=== PATIENT | female | born 1990 | race African-American/Black ===

== ENCOUNTER 2017-02-11 16:30 | Emergency (ER) | payer MEDICAID ==
[2016-03-15 15:20] VITALS: BMI 19.3
[~2017-02-11 16:30] MED LIST: BENADRYL25 MG PO; CARAFATE1 G/10 ML PO; LEVSIN/ANASP0.125 MG PO; NOVOLOG100 U/M1 SC; PEPCID20 MG PO; PRENATABS RX TA1 TAB PO; REGLAN SOL10 MG/10 M PO
[2017-02-11 17:58] LABS: HCG URINE NEGATIVE (NEGATIVE)
[2017-02-11 18:01] LABS: APPEARANCE HAZY (CLEAR); BILIRUBIN NEGATIVE (NEGATIVE); COLOR YELLOW (YELLOW); GLUCOSE NEGATIVE (NEGATIVE); KETONE MODERATE mg/dL (NEGATIVE); LEUKOCYTE ESTERASE 2+ (NEGATIVE); NITRITE NEGATIVE (NEGATIVE); PROTEIN TRACE mg/dL (NEGATIVE); UROBILINOGEN NORMAL (NORMAL); WHITE CELLS - URINE >50 /hpf (0-5)
[2017-02-11 18:02] LABS: BACTERIA MANY /hpf (NONE SEEN)
[2017-02-11 18:06] LABS: BASOPHILS 0.2 % (0.0-2.0); EOSINOPHILS 0.2 % (0-7); HEMATOCRIT 33.4 % (36.0-48.0); HEMOGLOBIN 10.4 g/dL (12-16); IMMATURE GRANULOCYTES 0.1 % (0-5); MCH 25.6 pg (26.0-34.0); MCHC 31.1 g/dL (31.0-37.0); MCV 82.1 fL (80.0-100.0); MEAN PLATELET VOLUME 10.1 fL (7.4-10.4); MONOCYTES 6.6 % (2-11); NEUTROPHILS 66.9 % (40-80); RBC 4.07 10x6/uL (4.00-5.40); RDW 18.5 % (11.5-14.5); WBC 8.1 10x3/uL (4.8-10.8)
[2017-02-11 18:29] LABS: PLATELET COUNT 359 10x3/uL (130-400)
[2017-02-11 19:10] LABS: ALBUMIN 3.7 g/dL (3.4-5.0); ALKALINE PHOSPHATASE 128 U/L (46-116); ALT (SGPT) 17 U/L (10-68); BILIRUBIN - TOTAL 0.47 mg/dL (0.2-1.3); CALC OSMOLALITY 283 mosm/kg (275-300); CARBON DIOXIDE 23.8 mmol/L (21.0-32.0); CHLORIDE - SERUM 108 mmol/L (98-107); CREATININE - SERUM 0.6 mg/dL (0.6-1.3); GLUCOSE 106 mg/dL (74-106); POTASSIUM - SERUM 3.4 mmol/L (3.5-5.1); PROTEIN - SERUM 8.2 g/dL (6.4-8.2); SODIUM 144 mmol/L (136-145); UREA NITROGEN 4 mg/dL (7-18); eGFR NON AFRICAN AMERICAN > 90 mL/min (90-120)
== END 2017-02-11 19:30 | disposition home or self-care (01) ==
LOC: D.ER 16:30
PROVIDERS: Emergency Medicine; Nurse Practitioner Acute Care
DX: N39.0 Urinary tract infection, site not specified (principal); N76.0 Acute vaginitis; B96.89 Other specified bacterial agents as the cause of diseases classified elsewhere; E11.9 Type 2 diabetes mellitus without complications; Z79.4 Long term (current) use of insulin; K31.84 Gastroparesis; E87.6 Hypokalemia; K58.9 Irritable bowel syndrome, unspecified; D63.8 Anemia in other chronic diseases classified elsewhere

== ENCOUNTER 2017-02-16 20:40 | Emergency (ER) | payer MEDICAID ==
[2016-03-15 15:20] VITALS: BMI 19.3
[2017-02-16 22:23] LABS: BASOPHILS 0.2 % (0.0-2.0); EOSINOPHILS 0.1 % (0-7); HEMATOCRIT 38.6 % (36.0-48.0); HEMOGLOBIN 12.6 g/dL (12-16); IMMATURE GRANULOCYTES 0.2 % (0-5); LYMPHOCYTES 13.4 % (15-50); MCH 26.5 pg (26.0-34.0); MCHC 32.6 g/dL (31.0-37.0); MCV 81.1 fL (80.0-100.0); MEAN PLATELET VOLUME 10.6 fL (7.4-10.4); MONOCYTES 7.7 % (2-11); NEUTROPHILS 78.4 % (40-80); RBC 4.76 10x6/uL (4.00-5.40); RDW 17.3 % (11.5-14.5); WBC 13.1 10x3/uL (4.8-10.8)
[2017-02-16 22:28] LABS: PLATELET COUNT 465 10x3/uL (130-400)
[2017-02-16 22:30] LABS: KETONE - SERUM SMALL mg/dL (NEGATIVE)
[2017-02-16 22:37] LABS: ALBUMIN 3.9 g/dL (3.4-5.0); ALKALINE PHOSPHATASE 112 U/L (46-116); ALT (SGPT) 18 U/L (10-68); BILIRUBIN - TOTAL 0.62 mg/dL (0.2-1.3); CALCIUM 10.8 mg/dL (8.5-10.1); CARBON DIOXIDE 22.4 mmol/L (21.0-32.0); CHLORIDE - SERUM 98 mmol/L (98-107); CREATININE - SERUM 0.9 mg/dL (0.6-1.3); MAGNESIUM - SERUM 1.9 mg/dL (1.8-2.4); PROTEIN - SERUM 8.9 g/dL (6.4-8.2); SODIUM 141 mmol/L (136-145); UREA NITROGEN 20 mg/dL (7-18); eGFR NON AFRICAN AMERICAN 80 mL/min (90-120)
[2017-02-16 22:38] LABS: CALC OSMOLALITY 287 mosm/kg (275-300); GLUCOSE 176 mg/dL (74-106)
[2017-02-16 22:39] LABS: POTASSIUM - SERUM 2.8 mmol/L (3.5-5.1)
[2017-02-17 01:42] LABS: APPEARANCE CLEAR (CLEAR); COLOR YELLOW (YELLOW); GLUCOSE NEGATIVE (NEGATIVE); LEUKOCYTE ESTERASE NEGATIVE (NEGATIVE); NITRITE NEGATIVE (NEGATIVE); PROTEIN TRACE mg/dL (NEGATIVE)
[2017-02-17 01:43] LABS: BILIRUBIN NEGATIVE (NEGATIVE); KETONE LARGE mg/dL (NEGATIVE); UROBILINOGEN NORMAL (NORMAL)
[2017-02-17 01:50] LABS: UDS - AMPHET NEGATIVE QUAL (NEGATIVE); UDS - BARB NEGATIVE QUAL (NEGATIVE); UDS - BENZO NEGATIVE QUAL (NEGATIVE); UDS - COCAINE NEGATIVE QUAL (NEGATIVE); UDS - METH NEGATIVE QUAL (NEGATIVE); UDS - OPIATE POSITIVE QUAL (NEGATIVE); UDS - PCP NEGATIVE QUAL (NEGATIVE); UDS - THC NEGATIVE QUAL (NEGATIVE)
[2017-02-17 01:52] LABS: AMORPHOUS SEDIMENT >1+ /lpf (NONE SEEN); BACTERIA MANY /hpf (NONE SEEN); EPITHELIAL CELLS 0-5 /hpf (0-5); HYALINE CAST 0-5 /lpf (NONE SEEN); MUCUS >1+ /lpf (NONE SEEN); RED CELLS - URINE OCC /hpf (0-5); WHITE CELLS - URINE 0-5 /hpf (0-5)
== END 2017-02-17 03:35 | disposition home or self-care (01) ==
LOC: D.ER 20:40
PROVIDERS: Emergency Medicine
DX: R11.10 Vomiting, unspecified (principal); R10.9 Unspecified abdominal pain; E11.9 Type 2 diabetes mellitus without complications; Z79.4 Long term (current) use of insulin; K31.84 Gastroparesis; E87.6 Hypokalemia

== ENCOUNTER 2017-05-03 20:49 | Emergency (ER) | payer MEDICAID ==
[2016-03-15 15:20] VITALS: BMI 19.3
[2017-05-03 21:23] LABS: APPEARANCE HAZY (CLEAR); BACTERIA MANY /hpf (NONE SEEN); BILIRUBIN NEGATIVE (NEGATIVE); COLOR YELLOW (YELLOW); GLUCOSE NEGATIVE (NEGATIVE); KETONE LARGE mg/dL (NEGATIVE); LEUKOCYTE ESTERASE 2+ (NEGATIVE); NITRITE NEGATIVE (NEGATIVE); PROTEIN 1+ mg/dL (NEGATIVE); RED CELLS - URINE 0-5 /hpf (0-5); SPECIFIC GRAVITY 1.015 (1.005-1.020); UROBILINOGEN NORMAL (NORMAL); WHITE CELLS - URINE 25-50 /hpf (0-5)
[2017-05-03 21:29] LABS: BASOPHILS 0.3 % (0-2); EOSINOPHILS 0.1 % (0-7); HEMATOCRIT 35.5 % (36.0-48.0); HEMOGLOBIN 11.4 g/dL (12-16); IMMATURE GRANULOCYTES 0.2 % (0-5); LYMPHOCYTES 29.2 % (15-50); MCH 25.7 pg (26.0-34.0); MCHC 32.1 g/dL (31.0-37.0); MCV 80.1 fL (80.0-100.0); MEAN PLATELET VOLUME 10.4 fL (7.4-10.4); MONOCYTES 6.2 % (2-11); RBC 4.43 10x6/uL (4.00-5.40); RDW 16.4 % (11.5-14.5); WBC 10.2 10x3/uL (4.8-10.8)
[2017-05-03 21:37] LABS: PLATELET COUNT 342 10x3/uL (130-400)
[2017-05-03 21:54] LABS: ALBUMIN 4.1 g/dL (3.4-5.0); ALKALINE PHOSPHATASE 103 U/L (46-116); ALT (SGPT) 16 U/L (10-68); AMYLASE - SERUM 72 U/L (25-115); CALC OSMOLALITY 281 mosm/kg (275-300); CALCIUM 9.8 mg/dL (8.5-10.1); CARBON DIOXIDE 25.7 mmol/L (21.0-32.0); CHLORIDE - SERUM 100 mmol/L (98-107); CREATININE - SERUM 0.7 mg/dL (0.6-1.3); GLUCOSE 150 mg/dL (74-106); LIPASE 89 U/L (73-393); POTASSIUM - SERUM 3.2 mmol/L (3.5-5.1); PROTEIN - SERUM 8.9 g/dL (6.4-8.2); SODIUM 139 mmol/L (136-145); UREA NITROGEN 15 mg/dL (7-18); eGFR NON AFRICAN AMERICAN > 90 mL/min (90-120)
== END 2017-05-04 00:20 | disposition home or self-care (01) ==
LOC: D.ER 20:49
PROVIDERS: Family Medicine
DX: R10.9 Unspecified abdominal pain (principal); R11.10 Vomiting, unspecified

== ENCOUNTER 2017-05-04 18:14 | Emergency (ER) | payer MEDICAID ==
[2016-03-15 15:20] VITALS: BMI 19.3
[2017-05-04 22:55] LABS: BASOPHILS 0.5 % (0-2); EOSINOPHILS 0.3 % (0-7); HEMATOCRIT 30.2 % (36.0-48.0); HEMOGLOBIN 9.7 g/dL (12-16); IMMATURE GRANULOCYTES 0.2 % (0-5); LYMPHOCYTES 26.1 % (15-50); MCH 25.6 pg (26.0-34.0); MCHC 32.1 g/dL (31.0-37.0); MCV 79.7 fL (80.0-100.0); MEAN PLATELET VOLUME 10.7 fL (7.4-10.4); MONOCYTES 6.9 % (2-11); RBC 3.79 10x6/uL (4.00-5.40); RDW 16.6 % (11.5-14.5)
[2017-05-04 22:56] LABS: PLATELET COUNT 259 10x3/uL (130-400); WBC 6.4 10x3/uL (4.8-10.8)
[2017-05-04 23:09] LABS: CARBON DIOXIDE 24.4 mmol/L (21.0-32.0); CHLORIDE - SERUM 105 mmol/L (98-107); CREATININE - SERUM 0.6 mg/dL (0.6-1.3); GLUCOSE 153 mg/dL (74-106); SODIUM 141 mmol/L (136-145); eGFR NON AFRICAN AMERICAN > 90 mL/min (90-120)
[2017-05-04 23:17] LABS: CALC OSMOLALITY 281 mosm/kg (275-300); UREA NITROGEN 8 mg/dL (7-18)
[2017-05-04 23:18] LABS: POTASSIUM - SERUM 2.7 mmol/L (3.5-5.1)
== END 2017-05-05 00:08 | disposition home or self-care (01) ==
LOC: D.ER 18:14
PROVIDERS: Nurse Practitioner Acute Care
DX: R11.2 Nausea with vomiting, unspecified (principal); R10.9 Unspecified abdominal pain

== ENCOUNTER 2017-05-05 10:26 | Emergency (ER) | payer MEDICAID ==
[2016-03-15 15:20] VITALS: BMI 19.3
[2017-05-05 11:23] LABS: BASOPHILS 0.5 % (0-2); EOSINOPHILS 1.4 % (0-7); HEMATOCRIT 32.7 % (36.0-48.0); HEMOGLOBIN 10.4 g/dL (12-16); IMMATURE GRANULOCYTES 0.2 % (0-5); LYMPHOCYTES 27.4 % (15-50); MCH 25.6 pg (26.0-34.0); MCHC 31.8 g/dL (31.0-37.0); MCV 80.3 fL (80.0-100.0); MONOCYTES 6.7 % (2-11); NEUTROPHILS 63.8 % (40-80); PLATELET COUNT 287 10x3/uL (130-400); RBC 4.07 10x6/uL (4.00-5.40); RDW 16.4 % (11.5-14.5)
[2017-05-05 11:24] LABS: WBC 8.7 10x3/uL (4.8-10.8)
[2017-05-05 11:40] LABS: ALBUMIN 3.8 g/dL (3.4-5.0); ALKALINE PHOSPHATASE 98 U/L (46-116); ALT (SGPT) 16 U/L (10-68); CALC OSMOLALITY 284 mosm/kg (275-300); CALCIUM 9.2 mg/dL (8.5-10.1); CARBON DIOXIDE 26.5 mmol/L (21.0-32.0); CHLORIDE - SERUM 104 mmol/L (98-107); CREATININE - SERUM 0.7 mg/dL (0.6-1.3); GLUCOSE 158 mg/dL (74-106); PROTEIN - SERUM 7.7 g/dL (6.4-8.2); SODIUM 142 mmol/L (136-145); UREA NITROGEN 9 mg/dL (7-18); eGFR NON AFRICAN AMERICAN > 90 mL/min (90-120)
[2017-05-05 13:01] LABS: APPEARANCE CLOUDY (CLEAR); BILIRUBIN NEGATIVE (NEGATIVE); COLOR YELLOW (YELLOW); GLUCOSE NEGATIVE (NEGATIVE); KETONE MODERATE mg/dL (NEGATIVE); LEUKOCYTE ESTERASE 2+ (NEGATIVE); NITRITE NEGATIVE (NEGATIVE); PROTEIN NEGATIVE (NEGATIVE); SPECIFIC GRAVITY 1.025 (1.005-1.020); UROBILINOGEN NORMAL (NORMAL)
[2017-05-05 13:02] LABS: BACTERIA MANY /hpf (NONE SEEN); EPITHELIAL CELLS 0-5 /hpf (0-5); MUCUS >1+ /lpf (NONE SEEN); RED CELLS - URINE 0-5 /hpf (0-5)
== END 2017-05-05 15:05 | disposition home or self-care (01) ==
LOC: D.ER 10:26
PROVIDERS: Nurse Practitioner Family
DX: R10.9 Unspecified abdominal pain (principal); N39.0 Urinary tract infection, site not specified; R11.2 Nausea with vomiting, unspecified; K31.84 Gastroparesis

== ENCOUNTER 2017-05-07 16:48 | Inpatient (IN) | payer MEDICAID ==
[~2017-05-07] VITALS: Ht 167.6 cm; Wt 61.4 kg
[2017-05-07 18:19] LABS: BASOPHILS 0.5 % (0-2); EOSINOPHILS 0.7 % (0-7); HEMATOCRIT 30.9 % (36.0-48.0); HEMOGLOBIN 9.7 g/dL (12-16); IMMATURE GRANULOCYTES 0.2 % (0-5); LYMPHOCYTES 30.2 % (15-50); MCH 25.3 pg (26.0-34.0); MCHC 31.4 g/dL (31.0-37.0); MCV 80.5 fL (80.0-100.0); MEAN PLATELET VOLUME 10.9 fL (7.4-10.4); MONOCYTES 6.6 % (2-11); NEUTROPHILS 61.8 % (40-80); PLATELET COUNT 285 10x3/uL (130-400); RBC 3.84 10x6/uL (4.00-5.40); RDW 17.3 % (11.5-14.5); WBC 8.5 10x3/uL (4.8-10.8)
[2017-05-07 18:28] LABS: ALBUMIN 3.8 g/dL (3.4-5.0); ALKALINE PHOSPHATASE 99 U/L (46-116); ALT (SGPT) 15 U/L (10-68); BILIRUBIN - TOTAL 0.43 mg/dL (0.2-1.3); CALC OSMOLALITY 283 mosm/kg (275-300); CALCIUM 9.5 mg/dL (8.5-10.1); CARBON DIOXIDE 29.5 mmol/L (21.0-32.0); CHLORIDE - SERUM 103 mmol/L (98-107); CREATININE - SERUM 0.7 mg/dL (0.6-1.3); GLUCOSE 145 mg/dL (74-106); PROTEIN - SERUM 7.9 g/dL (6.4-8.2); SODIUM 142 mmol/L (136-145); UREA NITROGEN 7 mg/dL (7-18); eGFR NON AFRICAN AMERICAN > 90 mL/min (90-120)
[2017-05-07 18:30] LABS: POTASSIUM - SERUM 2.7 mmol/L (3.5-5.1)
[2017-05-07 18:36] LABS: APPEARANCE CLOUDY (CLEAR); BILIRUBIN NEGATIVE (NEGATIVE); COLOR YELLOW (YELLOW); GLUCOSE NEGATIVE (NEGATIVE); KETONE SMALL mg/dL (NEGATIVE); LEUKOCYTE ESTERASE 2+ (NEGATIVE); NITRITE NEGATIVE (NEGATIVE); PROTEIN NEGATIVE (NEGATIVE); SPECIFIC GRAVITY 1.015 (1.005-1.020); UROBILINOGEN NORMAL (NORMAL)
[2017-05-07 18:40] LABS: BACTERIA MANY /hpf (NONE SEEN); WHITE CELLS - URINE >50 /hpf (0-5); YEAST >1+ WITH HYPHAE /hpf (NONE SEEN)
[2017-05-08 01:20] VITALS: BP 153/112
--- NOTE | 2017-05-08 01:22 | NUR ---
PATIENT RECIEVED FROM ER VIA WHEEL CHAIR AND SENIOR NETWORK SYSTEMS ENGINEER. IV MACHINES SWAPPED OUT. CENTRAL LINE TO RIGHT SUBCLAVIAN INFUSING IV POTASSIUM FLUID AND IV ABX. IV ABX COMPLETED. MORPHINE AND ZOFRAN GIVEN FOR 8/10 PAIN TO ABDOMEN AND NAUSEA. NO NEEDS NOTED AT THIS TIME.
--- NOTE | 2017-05-08 03:50 | NUR ---
PHIL, JUVENILE JUSTICE SPECIALIST, CALLED FOR REQUEST OF 50mg BENADRYL PO PER PATIENT REQUEST FOR SLEEP. PHIL STATED THAT SHE WILL TALK WITH THE ER DOC.
[2017-05-08 04:00] VITALS: BP 144/99
--- NOTE | 2017-05-08 04:05 | NUR ---
BRYANNA INFANTE AT BEDSIDE. PATIENT HAS NO VISIBLE SIGNS OF DISTRESS. BED IN THE LOWEST POSITION AND CALL LIGHT WITHIN REACH.
--- NOTE | 2017-05-08 08:10 | NUR ---
AWAKE AND ALERT. ORIENTED X3. REPORTS NO RELIEF WITH USE OF MORPHINE. WILL CONTINUE TO MONITOR. LUNGS ARE CLEAR BILATERALLY, NO COUGH NOTED. SKIN IS INTACT WITHOUT REDNESS. RIGHT SUBCLAVIAN PATENT WITHOUT REDNESS AT INSERTION SITE. IS REQUESTING BENADRYL FOR THROAT THIS AM. WILL CALL . DENIES NEEDS.
--- NOTE | 2017-05-08 09:00 | NUR ---
CALLED DR. TAYLOR. NEW ORDERS FOR IV BENADRYL RECEIVED. PATIENT GIVEN 50 MG SLOW IVP FOR C/O DIFFICULTY WITH SWALLOW.
[2017-05-08 09:02] VITALS: BP 149/99
[2017-05-08 12:44] VITALS: BP 150/97
--- NOTE | 2017-05-08 14:36 | NUR ---
REQUESTED WELDING ROBOT OPERATOR BE DISCONTINUED AND WANTS DILAUDID IVP Q 4 HOURS. THIS WAS OK WITH DR. TAYLOR. GIVEN 2MG DILAUDID SLOW IVP FOR C/O ABDOMINAL AND THROAT PAIN LEVEL 7. WILL MONITOR.
[2017-05-08 17:19] VITALS: BP 169/108
[2017-05-08 17:22] LABS: HEMOGLOBIN A1C 5.5 % (4.8-6.0)
[2017-05-08 18:29] LABS: % SATURATION 6 % (15-55); IRON 23 ug/dl (35-150); TOTAL IRON BIND CAPACITY 330 ug/dl (260-445); UNSAT IRON BIND CAPACITY 307 ug/dl (150-375)
[2017-05-08 18:30] LABS: AMYLASE - SERUM 55 U/L (25-115); FERRITIN 11 ng/mL (3-244); LIPASE 87 U/L (73-393)
--- NOTE | 2017-05-08 19:02 | NUR ---
ATE A FEW BITES OF SUPPER. NO NEW C/O AT THIS TIME. REQUESTED AND GIVEN 2MG DILAUDID SLOW IVP FOR C/O ABDOMINAL PAIN. WILL MONITOR. NO CHANGES NOTED.
[2017-05-08 20:00] VITALS: BP 176/114
[2017-05-09] VITALS: BP 156/111
--- NOTE | 2017-05-09 02:39 | NUR ---
PT C/O PAIN 8/ TO STOMACH. ADMINISTERED PRESCRIBED PRN DILAUDID PER ORDER. NO DISTRESS NOTED. SIDE RAILS X 2. BED IS LOW. CALL LIGHT IN REACH.
[2017-05-09 04:00] VITALS: BP 161/111
[2017-05-09 08:26] VITALS: BP 156/105
--- NOTE | 2017-05-09 08:26 | NUR ---
PT SEEN AND ASSESSED. RECENTLY RECIEVED PAIN AND NAUSEA MEDS-STATES SOME RELIEF AT PRESENT. RIGHT CVL NOTED WITH DRESSING/BIOPATCH INTACT. INFORMED NEEDED STOOL AND URINE SPECIMEN. CALL LIGHT IN REACH
[2017-05-09 09:23] LABS: BASOPHILS 0.5 % (0-2); EOSINOPHILS 3.1 % (0-7); HEMATOCRIT 25.8 % (36.0-48.0); HEMOGLOBIN 8.1 g/dL (12-16); IMMATURE GRANULOCYTES 0.1 % (0-5); LYMPHOCYTES 27.9 % (15-50); MCHC 31.4 g/dL (31.0-37.0); MEAN PLATELET VOLUME 10.5 fL (7.4-10.4); MONOCYTES 10.3 % (2-11); NEUTROPHILS 58.1 % (40-80); PLATELET COUNT 291 10x3/uL (130-400); RBC 3.11 10x6/uL (4.00-5.40); RDW 17.2 % (11.5-14.5); WBC 8.2 10x3/uL (4.8-10.8)
[2017-05-09 09:40] LABS: ALBUMIN 3.1 g/dL (3.4-5.0); ALKALINE PHOSPHATASE 130 U/L (46-116); ALT (SGPT) 14 U/L (10-68); CALCIUM 8.4 mg/dL (8.5-10.1); CARBON DIOXIDE 28.1 mmol/L (21.0-32.0); CHLORIDE - SERUM 105 mmol/L (98-107); CREATININE - SERUM 0.6 mg/dL (0.6-1.3); GLUCOSE 149 mg/dL (74-106); PROTEIN - SERUM 6.5 g/dL (6.4-8.2); SODIUM 140 mmol/L (136-145); eGFR NON AFRICAN AMERICAN > 90 mL/min (90-120)
[2017-05-09 09:46] LABS: CALC OSMOLALITY 277 mosm/kg (275-300); POTASSIUM - SERUM 3.3 mmol/L (3.5-5.1); UREA NITROGEN 2 mg/dL (7-18)
[2017-05-09 12:26] VITALS: BP 157/111
--- NOTE | 2017-05-09 13:28 | NUR ---
PT URINE SAMPLE TO LAB FOR URINE AND DRUG SCREEN. SPECIMEN THROWN AWAY THIS AM PER EVS
[2017-05-09 13:48] LABS: UDS - AMPHET NEGATIVE QUAL (NEGATIVE); UDS - BARB NEGATIVE QUAL (NEGATIVE); UDS - BENZO NEGATIVE QUAL (NEGATIVE); UDS - COCAINE NEGATIVE QUAL (NEGATIVE); UDS - METH NEGATIVE QUAL (NEGATIVE); UDS - OPIATE POSITIVE QUAL (NEGATIVE); UDS - PCP NEGATIVE QUAL (NEGATIVE); UDS - THC POSITIVE QUAL (NEGATIVE)
[2017-05-09 14:03] VITALS: Ht 167.6 cm; Wt 61.4 kg
--- NOTE | 2017-05-09 18:37 | NUR ---
Is the patient Alert and Oriented? Yes 0 * How many steps to enter\exit or inside your home? 15 stairs 0 * PCP DR Chandler in [place] 0 * Pharmacy [facility] 0 * Preadmission Environment Home Alone 0 * ADLs Independent 0 * Equipment None 0 * Other Equipment Denies any DME 0 * List name and contact numbers for known caregivers / representatives who currently or will assist patient after discharge: Saad STOVER [facility] - critical access hospital- [phone] 0 * Community resources currently utilized None 0 * Please name any agencies selected above. NONE 0 * Additional services required to return to the preadmission environment? No 0 * Can the patient safely return to the preadmission environment? Yes 0 * Has this patient been hospitalized within the prior 30 days at any hospital? No 0
--- NOTE | 2017-05-09 18:38 | NUR ---
CM met with patient at the bedside. She is alert and oriented. Very pleasant. CM had visited earlier in the day however the patient was showering as per the primary nurse. Patient lives in an apartment [facility] in [place], [place]. She will travel by van transport at time of discharge. There are 15 stairs to a flight to enter her apt. The stairs have a hand rail. Her mother. Saad Guillory, lives in [place] at [address]. her contact phone number is [phone]. Patient has no h/h services. Does not utilize any DME. Pharmacy- [facility] - on [facility] GI makeup sales consultant- DR Diaz- [place] Patient's correct address is [address] [place] [address] zip- [address]. Contact phone number- [phone]. patient denies any needs at this time. CM will follow to assist if needed.
--- NOTE | 2017-05-09 19:04 | NUR ---
REPORT CALLED TO
--- NOTE | 2017-05-09 19:15 | NUR ---
RECEIVED PT VIA WC FROM [employer], PT TO ROOM 1220, PT TRANSFERRED SELF WITH NO DIFFICULTY, INFORMED PT THAT I WILL BE BACK IN A FEW MINUTES TO DO ASSESSMENT, PT VERBALIZES UNDERSTANDING, PT ORIENTED TO ROOM, BED IN LOW POSITION, SIDE RAILS X 2, CALL LIGHT IN REACH
[2017-05-09 19:23] VITALS: BP 154/104; BP 159/115
--- NOTE | 2017-05-09 19:23 | NUR ---
ASSESSMENT PER FLOW SHEET, VS OBTAINED, IV IN RIGHT UPPER CHEST INTACT WITH NO REDNESS OR EDEMA INFUSING VIA PUMP NS AT 100 ML/HR, PT REPORTS FLATUS, NO BM SINCE SHE HAS BEEN HERE, AND VOIDING WITH NO DIFFICULTY, AFTER ASSESSMENT COMPLETED, PT UP TO BR, GAIT STEADY, VOIDED 400 MLS OF CLEAR YELLOW URINE B SELF WITH NO DIFFICULTY, PT BACK TO BED, PT INST ON SCD'S, STATES "THEY TOLD ME UPSTAIRS THAT I DIDN'T HAVE TO WEAR THEM SINCE I GET UP AND WALK AROUND", PT REFUSES SCD'S, PT REPORTS EPI PAIN 07/31, STATES "MY BLOOD PRESSURE WILL RUN HIGH LIKE THAT WHEN I AM HURTING", PT ASKS ABOUT GETTING PAIN MED WHEN DUE, INFORMED PT THAT I WILL LOOK OVER MEDS AND ADM MEDS WHEN DUE, PT VERBALIZES UNDERSTANDING, PT INST ON NPO AFTER MIDNIGHT, PT VERBALIZES UNDERSTANDING, DENIES NEEDS AT THIS THIS TIME
--- NOTE | 2017-05-09 20:04 | NUR ---
LAB HERE FOR BLOOD DRAW, THIS RN TO ROOM, LINE FLUSHED WITH 10 MLS OF NS WITH NO DIFFICULTY, WITHDREW 10 MLS OF BLOOD FOR WASTE, WITHDREW 10 MLS OF BLOOD FOR LAB, LINE FLUSHED WITH 10 MLS OF NS WITH NO DIFFICULTY, PT ASKS ABOUT PAIN MED, INFORMED PT THAT IT WAS DUE AROUND 8:30 PM, PT VERBALIZES UNDERSTANDING, DENIES NEEDS AT THIS TIME TIME
--- NOTE | 2017-05-09 20:15 | NUR ---
PT REFINISH TECHNICIAN LIGHT, REQUESTED AND SERVED VANILLA ICE CREAM, DENIES FURTHER NEEDS
--- NOTE | 2017-05-09 20:30 | NUR ---
ADM LENA KARIMI PER MD ORDERS FOR PAIN, SEE EMAR
--- NOTE | 2017-05-09 21:10 | NUR ---
PT OUT OF ROOM AT THIS TIME
--- NOTE | 2017-05-09 21:20 | NUR ---
PT BACK TO ROOM, GAIT STEADY, FAMILY AT SIDE
--- NOTE | 2017-05-09 22:00 | NUR ---
ADM 2100 MEDS PER MD ORDERS, SEE EMAR
--- NOTE | 2017-05-09 22:20 | NUR ---
PT SURVEY OPERATIONS DIRECTOR LIGHT, ADM CISNEROS PER MD ORDERS, SEE EMAR, PT REQUESTED AND SERVED ORANGE JUICE, PT DENIES FURTHER NEEDS
--- NOTE | 2017-05-09 23:00 | NUR ---
PT HAD LARGE BM, SOFT TO FIRM, BROWN IN COLOR, COLLECTED SPECIMEN, PT REPORTS NO DIFFICULTY WITH BOWEL MOVEMENT
[2017-05-10 00:30] VITALS: BP 151/108
--- NOTE | 2017-05-10 00:30 | NUR ---
PT AWAKE, VS OBTAINED, C/O EPIGASTRIC PAIN, ADM DILAUDID SIVP PER MD ORDERS, SEE EMAR, PT INST AGAIN ON NPO, PT VERBALIZES UNDERSTANDING, DENIES NEEDS AT THIS TIME
--- NOTE | 2017-05-10 02:00 | NUR ---
PT FLOOR RUNNER LIGHT, PT INQUIRES ABOUT BENADRYL, INFORMED PT THAT IT WAS NOT DUE TILL 419, PT VERBALIZES UNDERSTANDING, DENIES NEEDS AT THIS TIME
[2017-05-10 03:15] VITALS: BP 144/101
--- NOTE | 2017-05-10 03:15 | NUR ---
NEW BAG OF NS HUNG IV INFUSING VIA PUMP AT 100 ML/HR, SEE EMAR, VS OBTAINED, PT DENIES NEEDS AT THIS TIME
--- NOTE | 2017-05-10 04:11 | NUR ---
ADM BLAYNE KARIMI PER MD ORDERS, SEE EMAR, PT REQUEST PAIN MED, INFORMED PT THAT I WILL ADM PAIN MED AT 0430, PT VERBALIZES UNDERSTANDING
--- NOTE | 2017-05-10 04:35 | NUR ---
ADM LENA KARIMI PER MD ORDERS, SEE EMAR, I&O'S COLLECTED, EMPTIED 950 MLS OF CLEAR YELLOW URINE FROM [place] HAT, PT REPORTS THAT WAS 2 VOIDS, PT DENIES FURTHER NEEDS
--- NOTE | 2017-05-10 06:04 | NUR ---
PT AWAKE, PT UP TO BEDSIDE SCALE, WEIGHT 132, PT BACK TO BED, PT RATES ABD PAIN 04/30, STATES "IT'S OK RIGHT NOW", DENIES NEEDS AT THIS TIME
[2017-05-10 07:02] LABS: BASOPHILS 0.2 % (0-2); EOSINOPHILS 2.4 % (0-7); HEMATOCRIT 25.9 % (36.0-48.0); IMMATURE GRANULOCYTES 0.2 % (0-5); LYMPHOCYTES 28.4 % (15-50); MCH 25.6 pg (26.0-34.0); MCHC 30.9 g/dL (31.0-37.0); MONOCYTES 9.1 % (2-11); NEUTROPHILS 59.7 % (40-80); PLATELET COUNT 296 10x3/uL (130-400); RBC 3.12 10x6/uL (4.00-5.40); RDW 17.6 % (11.5-14.5); WBC 8.4 10x3/uL (4.8-10.8)
--- NOTE | 2017-05-10 07:15 | NUR ---
SHIFT REPORT TO MARILYNN CHERRY RN
[2017-05-10 07:30] VITALS: BP 151/100
[2017-05-10 07:38] LABS: ALBUMIN 2.9 g/dL (3.4-5.0); ALKALINE PHOSPHATASE 108 U/L (46-116); ALT (SGPT) 15 U/L (10-68); CALCIUM 8.4 mg/dL (8.5-10.1); CARBON DIOXIDE 28.9 mmol/L (21.0-32.0); CHLORIDE - SERUM 107 mmol/L (98-107); CREATININE - SERUM 0.6 mg/dL (0.6-1.3); POTASSIUM - SERUM 3.3 mmol/L (3.5-5.1); PROTEIN - SERUM 6.3 g/dL (6.4-8.2); SODIUM 143 mmol/L (136-145); THYROID STIMULATING HORMONE 1.14 uIU/mL (0.36-3.74); eGFR NON AFRICAN AMERICAN > 90 mL/min (90-120)
[2017-05-10 07:45] LABS: CALC OSMOLALITY 280 mosm/kg (275-300); GLUCOSE 90 mg/dL (74-106); UREA NITROGEN 1 mg/dL (7-18)
--- NOTE | 2017-05-10 08:50 | NUR ---
PATIENT IS AWAKE AND ALERT. SHE IS VERY PLEASANT AND INTERACTIVE. SHE REQUESTS DILAUDID FOR HER PAIN. GIVEN. IVF INFUSING PER ORDERS. DENIES NEEDS.
--- NOTE | 2017-05-10 11:17 | NUR ---
PATIENT GIVEN ICE CREAM AND GRAPE JUICE PER HER REQUEST. SHE EMPTIED HER IRON CAPSULE OUT ONTO A SPOON AND ATE IT, CHASING IT WITH HER JUICE. SHE DRANK ONLY A SIP OF THE GI COCKTAIL, REFUSING THE REST. SHE REQUESTED THE BENADRYL SAYING THAT "IT EASES THE INFLAMMATION IN MY ESOPHAGUS AND RELAXES MY STOMACH MUSCLES." SHE ALSO C/O DUMONT THAT SHE RATES A 9 AND BELIEVES IS R/T NOT EATING YET TODAY. SHE STATES THAT HER STOMACH PAIN IS DOWN TO A BEARABLE 5.
--- NOTE | 2017-05-10 13:59 | NUR ---
SPOKE WITH SUZANNA IN THE LAB. HE GOING TO LOOK FOR THE PATIENT'S STOOL IN THE LAB TO RUN AN OCCULT STOOL. IF IT HAS BEEN SENT OUT TO THE LAB, HE WILL TACK ON AN ORDER FOR THE OCCULT BLOOD TO BE RUN AT THEIR LAB.
[2017-05-10 14:32] VITALS: BP 145/95
--- NOTE | 2017-05-10 14:32 | NUR ---
PT SITTING UP IN BED WATCHING TELELVISION. VS OBTAINED, SEE FLOWSHEET FOR DOC. HINA, RN CARING FOR PT NOTIFIED OF PT'S BP. PT PROVIDED WITH SHERBET PER REQUEST, DENIES FURTHER NEEDS. SRUx2, CL IN REACH.
--- NOTE | 2017-05-10 16:57 | NUR ---
PATIENT GIVEN FRESH FLUIDS AND ICE CREAM.
--- NOTE | 2017-05-10 18:04 | NUR ---
PATIENT CONTINUES TO QUESTION IF THE GI DOCTOR IS COMING TO VISIT WITH HER. SHE IS UNHAPPY THAT HER IV BENADRYL HAS BEEN DISCONTINUED. SHE ALSO WANTS A REGULAR DIET BUT UNDERSTANDS THAT SHE MUST SEE THE GI DR. PRIOR TO EATING A FULL MEAL. IV ABTS INITIATED PER ORDERS. CALL LIGHT IS WITHIN HER REACH. CINDI.
--- NOTE | 2017-05-10 19:00 | NUR ---
PM ROUNDS MADE, MARILYNN CHERRY, RN IN ROOM ADM DIFLUCAN AND DILAUDID, INFORMED PT THAT I WILL RETURN SHORTLY TO DO ASSESSMENT, PT VERBALIZES UNDERSTANDING
[2017-05-10 20:00] VITALS: BP 146/96
--- NOTE | 2017-05-10 20:00 | NUR ---
ASSESSMENT PER FLOW SHEET, VS OBTAINED, RIGHT SUBCLAVIAN INTACT WITH NO REDNESS OR EDEMA INFUSING VIA PUMP NS AT 100 ML/HR, AND DIFLUCAN, PT REPORTS FLATUS, NO BM TODAY AND VOIDING BY SELF WITH NO DIFFICULTY, PT REQUEST SANDWICH TRAY, EXPLAINED TO PT THAT A SANDWICH TRAY WAS NOT IN HER DIET PLAN, ONLY THINGS WITH THE CONSISTENCY OF MASHED POTATOES AND NO RAW VEGETABLE, PT VERBALIZES UNDERSTANDING, SERVED CHICKEN NOODLE SOUP, REMOVED CHICKEN, AND EXPLAINED TO PT NOT TO EAT ANY CHICKEN THAT WAS NOT REMOVED, PT VERBALIZES UNDERSTANDING, REQUESTED AND SERVED GRAPE JUICE, PT RATES EPIGASTRIC PAIN 6/10, STATES "IT'S BETTER", DENIES FURTHER NEEDS
--- NOTE | 2017-05-10 20:33 | NUR ---
PT FINISHED EAT 90 OF CHICKEN NOODLE SOUP, REQUESTED AND SERVED VANILLA PUDDING, DENIES FURTHER NEEDS
--- NOTE | 2017-05-10 21:16 | NUR ---
ADM 210O MEDS PER MD ORDERS, SEE EMAR, PT REQUESTED AND SERVED VANILLA ICE CREAM, DENIES FURTHER NEEDS
--- NOTE | 2017-05-10 22:30 | NUR ---
PT RESTING WITH EYES CLOSED, RESP QUIET, NO DISTRESS NOTED, LEFT UNDISTURBED AT THIS TIME
--- NOTE | 2017-05-10 23:58 | NUR ---
NEW BAG OF NS HUNG INFUSING VIA PUMP AT 100 ML/HR
[2017-05-11] VITALS: BP 139/98
--- NOTE | 2017-05-11 | NUR ---
VS OBTAINED, AIR TURNED UP PER PT'S REQUEST, REQUESTED AND PROVIDED EXTRA BLANKET, DENIES NEEDS OR PAIN AT THIS TIME
--- NOTE | 2017-05-11 01:30 | NUR ---
PT RESTING WITH EYES CLOSED, RESP QUIET, NO DISTRESS NOTED, LEFT UNDISTURBED AT THIS TIME
[2017-05-11 02:50] VITALS: BP 149/101
--- NOTE | 2017-05-11 02:50 | NUR ---
PT PATTERN MARKER LIGHT, C/O EPIGASTRIC PAIN, ADM DILAUDID SIVP PER MD ORDERS, SEE EMAR, VS OBTAINED, I&O'S COLLECTED, DENIES FURTHER NEEDS
--- NOTE | 2017-05-11 03:20 | NUR ---
PT RESTING WITH EYES CLOSED, RESP QUIET, NO DISTRESS NOTED, LEFT UNDISTURBED AT THIS TIME
--- NOTE | 2017-05-11 05:50 | NUR ---
PT RESTING WITH EYES CLOSED, AROUSES TO SOFT VERBAL STIMUALTION, PT REQUESTS TO USE BR BEFORE BLOOD DRAW, INFORMED PT THAT I WILL RETURN
--- NOTE | 2017-05-11 06:00 | NUR ---
PORT FLUSHED WITH 10 MLS OF NS, WITHDREW 10 MLS OF BLOOD FOR WASTE, 10 MLS REMOVED FOR LAB, PORT FLUSHED WITH 10 MLS OF NS, PT DENIES NEEDS AT THIS TIME
--- NOTE | 2017-05-11 06:47 | NUR ---
PT AROUSES TO OPENING OF DOOR, ADM 0700 MEDS PO PER MD ORDERS, SEE EMAR, PT UP TO BEDSIDE SCALE, WEIGHT OBTAINED, PT BACK TO BED, REQUESTED AND SERVED ORANGE JUICE, DENIES FURTHER NEEDS
--- NOTE | 2017-05-11 07:00 | NUR ---
SHIFT REPORT TO MARILYNN CHERRY RN
[2017-05-11 07:27] LABS: BASOPHILS 0.7 % (0-2); EOSINOPHILS 3.4 % (0-7); HEMATOCRIT 25.7 % (36.0-48.0); IMMATURE GRANULOCYTES 0.3 % (0-5); LYMPHOCYTES 40.1 % (15-50); MCH 25.8 pg (26.0-34.0); MCHC 31.1 g/dL (31.0-37.0); MCV 82.9 fL (80.0-100.0); MEAN PLATELET VOLUME 10.8 fL (7.4-10.4); MONOCYTES 10.6 % (2-11); NEUTROPHILS 44.9 % (40-80); PLATELET COUNT 338 10x3/uL (130-400); RDW 18.3 % (11.5-14.5)
[2017-05-11 07:51] LABS: ALBUMIN 2.9 g/dL (3.4-5.0); ALKALINE PHOSPHATASE 111 U/L (46-116); CALC OSMOLALITY 279 mosm/kg (275-300); CALCIUM 8.5 mg/dL (8.5-10.1); CARBON DIOXIDE 28.4 mmol/L (21.0-32.0); CHLORIDE - SERUM 108 mmol/L (98-107); CREATININE - SERUM 0.5 mg/dL (0.6-1.3); GLUCOSE 87 mg/dL (74-106); POTASSIUM - SERUM 3.5 mmol/L (3.5-5.1); PROTEIN - SERUM 6.3 g/dL (6.4-8.2); SODIUM 143 mmol/L (136-145); UREA NITROGEN 1 mg/dL (7-18); eGFR NON AFRICAN AMERICAN > 90 mL/min (90-120)
[2017-05-11 07:53] LABS: ALT (SGPT) 8 U/L (10-68)
[2017-05-11 08:30] VITALS: BP 134/85
--- NOTE | 2017-05-11 10:23 | NUR ---
PATIENT IS SITTING UP IN HER BED VISITING WITH HER MOTHER. SHE DENIES NEEDS AT THIS TIME.
--- NOTE | 2017-05-11 12:27 | NUR ---
PATIENT HAS BEEN AMBULATING OUT INTO THE HALLWAYS ACCOMPANIED BY HER MOTHER. HER GAIT IS STEADY AND SHE IS WITHOUT COMPLAINTS. SL HER TLSC. SPOKE WITH THE IV NURSE TO LET HER KNW THAT THE PATIENT IS PLANNING TO GO HOME TODAY AND WILL NEED THE CENTAL LINE REMOVED.
[2017-05-11] MEDS ORDERED: FEOSOL LIQ300 MG/5 M PO (13:23)
[2017-05-11] MEDS ORDERED: LISINOPRIL10 MG PO (13:23)
--- NOTE | 2017-05-11 14:26 | NUR ---
TLSC REMOVED BY THE IV ACCESS NURSE. CATHETER TIP WAS INTACT. NO BLEEDING NOTED FROM THE INSERTION SITE. DRESSED WITH CLEAR TELFA. INSTRUCTED PATIENT TO HOLD PRESSURE IF BLEEDING NOTED.
--- NOTE | 2017-05-11 15:47 | NUR ---
REVIEWED PATIENT'S DISCHARGE INSTRUCTIONS WITH HER. DISCUSSED THE PRESCRIPTIONS, HER FOLLOW UP APPT WITH DR. WHITE, MADE APPT WITH DR. HICKEY 05/19/17 AT 10AM. SHE IS WAITING FOR THE [employer] BUS TO GET HER FOR A RIDE TO HER HOME IN [place].
--- NOTE | 2017-05-11 16:35 | NUR ---
PATIENT ROLLED OUT TO WAITING PUBLIC TRANSPORTATION.
--- NOTE | 2017-05-12 08:03 | NUR ---
05/12/2017 8:00 DCP: Discharge Planning Late Entry: CM met with patient yesterday afternoon - DC order rec'd. Patient will return home in [place]. Call placed to [employer] - arrangements made for transport home. [facility] Van will pick patient up around 1530 - they will call nursing station when they arrive at hospital. Notified nursing and patient of above. No other needs identified or verbalized at that time.
== END 2017-05-11 16:35 | disposition home or self-care (01) | DRG 74 ==
LOC: D.ER 16:48 → D.WS 23:58 → D.MS 23:58 → OBSVTIME 23:58 → D.WS 05-09 10:05
PROVIDERS: Emergency Medicine; ADMIT Family Medicine Adult Medicine
DX: E10.43 Type 1 diabetes mellitus with diabetic autonomic (poly)neuropathy (principal); N39.0 Urinary tract infection, site not specified; K56.7 Ileus, unspecified; K56.60 Unspecified intestinal obstruction; K31.84 Gastroparesis; Z79.4 Long term (current) use of insulin; K22.2 Esophageal obstruction; I10 Essential (primary) hypertension; K21.9 Gastro-esophageal reflux disease without esophagitis; D50.9 Iron deficiency anemia, unspecified

== ENCOUNTER 2017-06-19 23:34 | Inpatient (IN) | payer MEDICAID ==
[~2017-06-19] VITALS: Ht 167.6 cm; Wt 54.4 kg
[~2017-06-19 23:34] MED LIST changes: +FEOSOL LIQ300 MG/5 M PO; +LISINOPRIL10 MG PO
[2017-06-20 02:29] LABS: BASOPHILS 0.1 % (0-2); EOSINOPHILS 0 % (0-7); HEMATOCRIT 34.8 % (36.0-48.0); HEMOGLOBIN 11.6 g/dL (12-16); IMMATURE GRANULOCYTES 0.3 % (0-5); LYMPHOCYTES 8.5 % (15-50); MCH 26.1 pg (26.0-34.0); MCHC 33.3 g/dL (31.0-37.0); MCV 78.2 fL (80.0-100.0); MEAN PLATELET VOLUME 10.5 fL (7.4-10.4); NEUTROPHILS 87.1 % (40-80); RBC 4.45 10x6/uL (4.00-5.40); RDW 18.5 % (11.5-14.5); WBC 14.6 10x3/uL (4.8-10.8)
[2017-06-20 02:31] LABS: PLATELET COUNT 420 10x3/uL (130-400)
[2017-06-20 03:04] LABS: ALBUMIN 3.8 g/dL (3.4-5.0); ALKALINE PHOSPHATASE 97 U/L (46-116); ALT (SGPT) 13 U/L (10-68); AMYLASE - SERUM 48 U/L (25-115); CALC OSMOLALITY 288 mosm/kg (275-300); CALCIUM 8.8 mg/dL (8.5-10.1); CARBON DIOXIDE 24.5 mmol/L (21.0-32.0); CHLORIDE - SERUM 99 mmol/L (98-107); CREATININE - SERUM 0.6 mg/dL (0.6-1.3); GLUCOSE 198 mg/dL (74-106); LIPASE 68 U/L (73-393); PROTEIN - SERUM 7.9 g/dL (6.4-8.2); SODIUM 141 mmol/L (136-145); UREA NITROGEN 18 mg/dL (7-18); eGFR NON AFRICAN AMERICAN > 90 mL/min (90-120)
[2017-06-20 03:05] LABS: POTASSIUM - SERUM 2.7 mmol/L (3.5-5.1)
--- NOTE | 2017-06-20 04:43 | NUR ---
PT ARRIVED VIA STRETCHER WITH FAMILY AT BEDSIDE. WILL CONTINUE TO MONITOR.
[2017-06-20 04:57] VITALS: BP 150/92; BMI 19.4
[2017-06-20] MEDS ORDERED: PHENERGAN25 M1 PO (05:10)
--- NOTE | 2017-06-20 05:12 | NUR ---
ADMISSION ASSESSMENT, HISTORY AND HOME MED LIST COMPLETED. PT CONTINUES TO HAVE C/O ABD PAIN. REQUESTING DILAUDID. INFORMED HAS ORDERS FOR IV MORPHINE. WILL CONTINUE TO MONITOR. CALL LIGHT WITHIN REACH.
--- NOTE | 2017-06-20 06:52 | NUR ---
PT CONTINUES TO HAVE C/O ABD PAIN. REQUESTING DILAUDID INSTEAD OF MORPHINE. INFORMED TO SPEAK TO MD IN AM.
[2017-06-20 07:28] LABS: BASOPHILS 0.2 % (0-2); EOSINOPHILS 0.1 % (0-7); HEMATOCRIT 36.2 % (36.0-48.0); HEMOGLOBIN 11.7 g/dL (12-16); IMMATURE GRANULOCYTES 0.3 % (0-5); LYMPHOCYTES 14.9 % (15-50); MCH 25.6 pg (26.0-34.0); MCHC 32.3 g/dL (31.0-37.0); MCV 79.2 fL (80.0-100.0); MEAN PLATELET VOLUME 10.8 fL (7.4-10.4); MONOCYTES 6.1 % (2-11); NEUTROPHILS 78.4 % (40-80); PLATELET COUNT 405 10x3/uL (130-400); RBC 4.57 10x6/uL (4.00-5.40); RDW 18.8 % (11.5-14.5); WBC 15.4 10x3/uL (4.8-10.8)
[2017-06-20 07:52] LABS: CALC OSMOLALITY 282 mosm/kg (275-300); CALCIUM 8.8 mg/dL (8.5-10.1); CARBON DIOXIDE 25.7 mmol/L (21.0-32.0); CHLORIDE - SERUM 101 mmol/L (98-107); CREATININE - SERUM 0.6 mg/dL (0.6-1.3); GLUCOSE 160 mg/dL (74-106); MAGNESIUM - SERUM 2.3 mg/dL (1.8-2.4); SODIUM 140 mmol/L (136-145); UREA NITROGEN 15 mg/dL (7-18); eGFR NON AFRICAN AMERICAN > 90 mL/min (90-120)
[2017-06-20 07:55] LABS: POTASSIUM - SERUM 3.9 mmol/L (3.5-5.1)
--- NOTE | 2017-06-20 08:15 | NUR ---
RECIEVED PT LYYING IN BED WITH EYES CLOSED KARIS HAD PREVIOUS DOSING OF MORPHINE PER ORDER IN ER REQUESTNG DILAUDID EXPLAINED TO PT THAT SHE HAS NO CURRENT ORDER FOR DILAUDID AND THAT IT WOULD HAVE TO BE ADDRESSED WITH MD THIS NURSE WAS UNABLE TO PRESCRIBE MEDICATIONS FOR HER. PT STATES THATS THE ONLY THING THAT WORKS FOR MY PAIN EXPRESSED TO PT THAT THIS NURSE UNDERSTANDS HOWEVER I AM UNABLE TO PRESCRIBE MEDS AND THAT IT WOULD HAVE TO BE ADDRESED WITH MD OR CORRECTIONAL OFFICER SERGEANT THAT IS OUT OF THIS NURSES SCOPE OF PRACTICE.
[2017-06-20 12:24] VITALS: BP 116/64
--- NOTE | 2017-06-20 13:55 | NUR ---
PT LAYING IN BED, QUESTIONED ABOUT NAUSEA MEDICATION, WAS INFORMED BY NURSE THAT MEDICATION WAS COMING, INFORMED PT OF THIS. PT HAS NO OTHER NEEDS AT THIS TIME. BED IN LOW POSITION AND CALL LIGHT WITHIN REACH. WILL CONTINUE TO MONITOR.
[2017-06-20 15:28] VITALS: Ht 167.6 cm; Wt 54.4 kg
[2017-06-20 16:13] VITALS: BP 125/68
--- NOTE | 2017-06-20 18:54 | NUR ---
CALL PLACED AT PT REQUEST PAIN MEDS INEFFECTIVE ORDER CHANGED PER RHEA BACON D/Davon MORPHINE START DILAUDID 1 MG Q6H PRN. ALSO NEW ORDER FOR BENADRYL ELIXER. ZOFRAN DRIP INFUSING PER ORDER AT 4.7
[2017-06-20 19:00] VITALS: BP 131/85
--- NOTE | 2017-06-20 20:24 | NUR ---
PATIENT STATED SHE HAS BEEN UNABLE TO SWALLOW EVEN WATER. SHE STATED SHE HAS INFLAMMATION IN HER ESOPHAGEOUS REQUESTING IV BENADRYL FOR INFLAMMATION. CALLED ADALID HOOKS AND TOLD HER WHAT PATIENT SAID. ORDERS PUT IN.
--- NOTE | 2017-06-20 20:36 | NUR ---
THERE IS AN EMPTY CONTAINER OF ICE CREAM IN HER ROOM. ASKED PATIENT IF SHE CAN SWALLOW CARAFATE, SHE STATED "I TAKE IT, I MEAN IT HURTS BUT I CAN TAKE IT."
--- NOTE | 2017-06-20 22:56 | NUR ---
PATIENT STATED "MY THROAT IS STARTING TO BURN AGAIN. DO I HAVE ANYTHING FOR THAT? LAST TIME THEY GAVE ME SOME ICE-CREAM AND I JUST NIBBLED ON IT." I CHECKED THE ORDERS, I STATED "NO. THE ONLY THING I HAVE FOR THAT IS CARAFATE AND YOU HAVE ALREADY HAD IT. AND I AM NOT SUPPOSED TO GIVE YOU ICE CREAM BECAUSE YOU ARE ON A CLEAR LIQUID DIET." PATIENT STATED "WELL, ACTUALLY THEY ASKED THE DOCTOR EARILY AND SHE SAID IT WAS OKAY FOR ME TO HAVE ICE-CREAM."
--- NOTE | 2017-06-20 22:58 | NUR ---
BROUGHT PATIENT AN ICE-CREAM.
--- NOTE | 2017-06-20 23:30 | NUR ---
PATIENT JUST GOT BACK IN BED FROM GOING TO THE BATHROOM. BROUGHT A [place] HAT AND PUT IT IN THE TOILET. TOLD PATIENT THERE IS AN ORDER FOR A URINE SPECIMEN AND TO CALL WHEN SHE URINATES. PATIENT VERBALIZED UNDERSTANDING.
--- NOTE | 2017-06-20 23:37 | NUR ---
PATIENT IS AWAKE, ALERT AND ORIENTED X'S 4. RESPIRATIONS ARE EVEN AND UNLABORED ON ROOM AIR. NO SIGNS OF DISTRESS NOTED. PATIENT IS CONVERSATED WITH THE ENGINEERING EQUIPMENT OPERATOR, AND SMILING.
--- NOTE | 2017-06-20 23:50 | NUR ---
PATIENT REFUSED SCDS. SHE STATED "I DO NOT THINK THEY WILL BE TOO COMFORTABLE TO SLEEP IN. I WILL WEAR THEM TOMORROW."
[2017-06-21] VITALS: BP 133/91
[2017-06-21 04:00] VITALS: BP 127/85
--- NOTE | 2017-06-21 04:29 | NUR ---
RESTING QUIETLY WITH EYES CLOSED.
[2017-06-21 04:59] LABS: BASOPHILS 0.3 % (0-2); EOSINOPHILS 2.6 % (0-7); HEMATOCRIT 28.3 % (36.0-48.0); IMMATURE GRANULOCYTES 0.2 % (0-5); MCH 25.6 pg (26.0-34.0); MCHC 31.8 g/dL (31.0-37.0); MCV 80.6 fL (80.0-100.0); MEAN PLATELET VOLUME 10.7 fL (7.4-10.4); MONOCYTES 6.9 % (2-11); PLATELET COUNT 284 10x3/uL (130-400); RBC 3.51 10x6/uL (4.00-5.40); RDW 18.9 % (11.5-14.5); WBC 10.3 10x3/uL (4.8-10.8)
[2017-06-21 05:20] LABS: ALBUMIN 2.9 g/dL (3.4-5.0); ALKALINE PHOSPHATASE 80 U/L (46-116); ALT (SGPT) 11 U/L (10-68); BILIRUBIN - TOTAL 0.48 mg/dL (0.2-1.3); CALCIUM 8.1 mg/dL (8.5-10.1); CARBON DIOXIDE 26.9 mmol/L (21.0-32.0); CHLORIDE - SERUM 107 mmol/L (98-107); CREATININE - SERUM 0.5 mg/dL (0.6-1.3); GLUCOSE 126 mg/dL (74-106); PROTEIN - SERUM 6.2 g/dL (6.4-8.2); SODIUM 141 mmol/L (136-145); eGFR NON AFRICAN AMERICAN > 90 mL/min (90-120)
[2017-06-21 05:24] LABS: CALC OSMOLALITY 281 mosm/kg (275-300); POTASSIUM - SERUM 3.2 mmol/L (3.5-5.1); UREA NITROGEN 9 mg/dL (7-18)
--- NOTE | 2017-06-21 07:00 | NUR ---
LYING ON LEFT SIDE WITH EYES CLOSED AND RESPIRATIONS EVEN AND NON LABORED. DOOR OPEN AND CALL LIGHT IN REACH. RIGHT EXTERNAL JUGULAR IV PATENT. SRX2 WITH BED IN LOWEST POSITION AND WHEELS LOCKED. WILL CONTINUE WITH PLAN OF CARE.
[2017-06-21 08:13] VITALS: BP 128/86
--- NOTE | 2017-06-21 10:07 | NUR ---
THE UGI HAS BEEN RESCHEDULED DUE TO PT HAVING TOO MUCH CONTRAST IN HER COLON. PT HAS BEEN ADVISED TO PUSH FLUIDS AND RESCHEDULED IN 2 DAYS
[2017-06-21 11:35] VITALS: BP 150/108
[2017-06-21 16:29] VITALS: BP 133/67
--- NOTE | 2017-06-21 17:59 | NUR ---
NO ACUTE DISTRESS NOTED HAS RECIEVED PAIN MEDS PER ORDER TODAY AND BENADRYL WELL.
[2017-06-21 19:00] VITALS: BP 134/96
--- NOTE | 2017-06-21 19:23 | NUR ---
PATIENT IS AWAKE, ALERT AND ORIENTED X'S 4. RESPIRATIONS ARE EVEN AND UNLABORED ON ROOM AIR. NO SIGNS OF DISTRESS NOTED.
[2017-06-22 00:55] VITALS: BP 136/92
[2017-06-22 02:50] LABS: UDS - AMPHET NEGATIVE QUAL (NEGATIVE); UDS - BARB NEGATIVE QUAL (NEGATIVE); UDS - BENZO NEGATIVE QUAL (NEGATIVE); UDS - COCAINE NEGATIVE QUAL (NEGATIVE); UDS - METH NEGATIVE QUAL (NEGATIVE); UDS - OPIATE POSITIVE QUAL (NEGATIVE); UDS - PCP NEGATIVE QUAL (NEGATIVE); UDS - THC POSITIVE QUAL (NEGATIVE)
[2017-06-22 03:00] LABS: APPEARANCE CLEAR (CLEAR); BILIRUBIN NEGATIVE (NEGATIVE); COLOR STRAW (YELLOW); GLUCOSE NEGATIVE (NEGATIVE); KETONE NEGATIVE (NEGATIVE); LEUKOCYTE ESTERASE NEGATIVE (NEGATIVE); NITRITE NEGATIVE (NEGATIVE); PROTEIN NEGATIVE (NEGATIVE); UROBILINOGEN NORMAL (NORMAL)
[2017-06-22 03:01] LABS: BACTERIA MODERATE /hpf (NONE SEEN); EPITHELIAL CELLS 0-5 /hpf (0-5); RED CELLS - URINE 0-5 /hpf (0-5); WHITE CELLS - URINE 0-5 /hpf (0-5)
[2017-06-22 04:00] VITALS: BP 124/82
[2017-06-22 05:17] LABS: EOSINOPHILS 3.6 % (0-7); HEMATOCRIT 24.9 % (36.0-48.0); HEMOGLOBIN 7.9 g/dL (12-16); IMMATURE GRANULOCYTES 0.6 % (0-5); LYMPHOCYTES 36.7 % (15-50); MCH 25.4 pg (26.0-34.0); MCHC 31.7 g/dL (31.0-37.0); MCV 80.1 fL (80.0-100.0); MEAN PLATELET VOLUME 11.1 fL (7.4-10.4); MONOCYTES 9.9 % (2-11); NEUTROPHILS 48.2 % (40-80); PLATELET COUNT 253 10x3/uL (130-400); RBC 3.11 10x6/uL (4.00-5.40); RDW 18.9 % (11.5-14.5)
[2017-06-22 05:28] LABS: ALBUMIN 2.6 g/dL (3.4-5.0); ALKALINE PHOSPHATASE 103 U/L (46-116); ALT (SGPT) 9 U/L (10-68); BILIRUBIN - TOTAL 0.22 mg/dL (0.2-1.3); CALC OSMOLALITY 283 mosm/kg (275-300); CALCIUM 7.6 mg/dL (8.5-10.1); CARBON DIOXIDE 25.7 mmol/L (21.0-32.0); CHLORIDE - SERUM 110 mmol/L (98-107); CREATININE - SERUM 0.6 mg/dL (0.6-1.3); GLUCOSE 139 mg/dL (74-106); POTASSIUM - SERUM 3.4 mmol/L (3.5-5.1); PROTEIN - SERUM 5.6 g/dL (6.4-8.2); SODIUM 143 mmol/L (136-145); UREA NITROGEN 3 mg/dL (7-18); eGFR NON AFRICAN AMERICAN > 90 mL/min (90-120)
--- NOTE | 2017-06-22 07:30 | NUR ---
REPORT RECIEVED, ASSUMED CARE. PT RESTING. ABD PAIN 07/31, WILL ADMINISTER PRN PAIN MEDICATION. NO OTHER COMPLAINTS AT THIS TIME. IV INTACT, FLUIDS INFUSING ORDERED. CALL LIGHT WITHIN REACH.
[2017-06-22 07:39] VITALS: BP 125/83
--- NOTE | 2017-06-22 08:08 | NUR ---
Patient Name: SHIRA OLIVAREZ Admission Status: ER Accout number: [id number] Admission Date: 06-21-2017 : 1990 Admission Diagnosis: Attending: BRANDT Current LOS: 1 Anticipated DC Date: 06-27-2017 Planned Disposition: Home Primary Insurance: MEDICAID [place] Discharge Planning Comments: CM MET WITH PATIENT REGARDING D/C NEEDS AND PLANS. PATIENT STATED SHE LIVES WITH HER SPOUSE (RONAL) AND THEIR CHILDREN IN [place]. PATIENT STATED THERE ARE 13 STEPS W/RAILS TO ENTER HOME AND NO STAIRS INSIDE. PATIENT IS INDEPENDENT WITH HER CARE AND STATED SHE HAS NO DME AT HOME. PATIENT DOES HAVE A GLUCOMETER SHE STATED BUT RARELY CHECKS HER SUGAR. PATIENTS PCP IS DR. HICKEY IN [place] AND PHARMACY IS [facility] IN [place]. PATIENT DOES NOT WANT HOME HEALTH AT DISCHARGE. PATIENT STATED HER SPOUSE MIGHT PICK HER UP AT DISCHARGE BUT IF HE CANNOT SHE WILL NEED A RIDE ON THE [employer] (STATED SHE DID THIS LAST VISIT). CM WILL CONTINUE TO FOLLOW PATIENT WITH D/C NEEDS AND PLANS. PCP DR. HICKEY ([place]) [facility] ([place]) RONAL ([place]OUSE) [phone] [employer] Machine Repairer: Veena Espino Is the patient Alert and Oriented? Yes 0 * How many steps to enter\exit or inside your home? 13 W/RAILS 0 * PCP DR. HICKEY IN [place] 0 * Pharmacy [facility] IN [place] 0 * Preadmission Environment Home with Family 0 * ADLs Independent 0 * Equipment Glucometer 0 * List name and contact numbers for known caregivers / representatives who currently or will assist patient after discharge: RONAL LANE ([place]) [phone] 0 * Community resources currently utilized None 0 * Additional services required to return to the preadmission environment? Yes 0 * Can the patient safely return to the preadmission environment? Yes 0 * Has this patient been hospitalized within the prior 30 days at any hospital? No 0 Grand Total: 0
--- NOTE | 2017-06-22 10:45 | NUR ---
ZOFRAN DRIP ON HOLD ORDERED. PT ON CLEAR LIQUID DIET, WILL ADVANCE TO FULL LIQUID DIET DURING LUNCH IF ABLE TO TOLERATE CLEAR LIQUIDS WITHOUT NAUSEA OR VOMITING.
--- NOTE | 2017-06-22 11:58 | NUR ---
PT RESTING IN ROOM, NO COMPLAINTS AT THIS TIME. CALL LIGHT WITHIN REACH.
[2017-06-22 12:17] VITALS: BP 143/94
--- NOTE | 2017-06-22 13:36 | NUR ---
NUTRITION MONITORING & EVAL CHART REVIEWED. CLEAR LIQUID DIET. UPPER GI FOR TUESDAY. WILL CONTINUE TO MONITOR DIET ADVANCEMENT. RD FOLLOWING
[2017-06-22 15:59] VITALS: BP 138/102
--- NOTE | 2017-06-22 18:15 | NUR ---
PT RESTING IN ROOM, WATCHING TV. NO COMPLAINTS. CALL LIGHT WITHIN REACH.
[2017-06-22 19:00] VITALS: BP 128/96
--- NOTE | 2017-06-22 19:00 | NUR ---
BEDSIDE REPORT RECEIVED AND CARE OF PT ASSUMED. PT LYING IN SUPINE POSITION WATCHING TV. IV IN RIGHT NECK PATENT WITH NS INFUSING AT 150 ML / HR. WILL MONITOR CLOSELY FOR NEEDS.
--- NOTE | 2017-06-22 19:38 | NUR ---
GAVE DILAUDID 1 MG IVP PER PT REQUEST FOR ABDOMINAL PAIN AT LEVEL 8/10. WILL CONTINUE TO MONITOR FOR NEEDS.
--- NOTE | 2017-06-22 20:51 | NUR ---
HS MEDICATIONS GIVEN. GAVE TURKEY SANDWICH FOR SNACK.
--- NOTE | 2017-06-22 21:50 | NUR ---
GAVE BENADRYL PER PT REQUEST, PER PRN ORDER. WILL CONTINUE TO MONTIOR FOR NEEDS.
[2017-06-23] VITALS: BP 140/90
--- NOTE | 2017-06-23 | NUR ---
NPO STATUS STARTING NOW. SIGNAGE PLACED ON DOOR AND ALL FOOD AND BEVERAGES REMOVED FROM SIDE TABLE.
--- NOTE | 2017-06-23 01:27 | NUR ---
GAVE DILAUDID 1 MG IVP PER PT REQUEST FOR ABDOMINAL PAIN AT LEVEL 9/10. WILL CONTINUE TO MONITOR FOR NEEDS. CALL LIGHT WITHIN REACH.
[2017-06-23 04:00] VITALS: BP 149/93
[2017-06-23 05:45] LABS: EOSINOPHILS 3.9 % (0-7); HEMATOCRIT 25.6 % (36.0-48.0); HEMOGLOBIN 8.1 g/dL (12-16); IMMATURE GRANULOCYTES 0.4 % (0-5); LYMPHOCYTES 39.4 % (15-50); MCH 25.2 pg (26.0-34.0); MCHC 31.6 g/dL (31.0-37.0); MCV 79.8 fL (80.0-100.0); MEAN PLATELET VOLUME 11.3 fL (7.4-10.4); MONOCYTES 8.9 % (2-11); NEUTROPHILS 46.4 % (40-80); PLATELET COUNT 251 10x3/uL (130-400); RBC 3.21 10x6/uL (4.00-5.40); RDW 18.9 % (11.5-14.5); WBC 6.9 10x3/uL (4.8-10.8)
[2017-06-23 05:55] LABS: ALBUMIN 2.8 g/dL (3.4-5.0); ALKALINE PHOSPHATASE 134 U/L (46-116); ALT (SGPT) 10 U/L (10-68); BILIRUBIN - TOTAL 0.21 mg/dL (0.2-1.3); CALC OSMOLALITY 283 mosm/kg (275-300); CALCIUM 7.9 mg/dL (8.5-10.1); CARBON DIOXIDE 27.7 mmol/L (21.0-32.0); CHLORIDE - SERUM 106 mmol/L (98-107); CREATININE - SERUM 0.5 mg/dL (0.6-1.3); GLUCOSE 125 mg/dL (74-106); POTASSIUM - SERUM 3.6 mmol/L (3.5-5.1); PROTEIN - SERUM 6.1 g/dL (6.4-8.2); SODIUM 144 mmol/L (136-145); eGFR NON AFRICAN AMERICAN > 90 mL/min (90-120)
[2017-06-23 05:56] LABS: UREA NITROGEN 2 mg/dL (7-18)
--- NOTE | 2017-06-23 06:18 | NUR ---
BLOOD SUGAR 125 THIS CHECK, REQUIRING NO COVERAGE PER SLIDING SCALE.
--- NOTE | 2017-06-23 07:15 | NUR ---
REPORT RECEIVED. ASSUMED CARE OF PT. PT RESTING IN BED. R NECK IV INTACT, INFUSING FLUIDS ORDERED, DRSG DRY AND INTACT. PT NPO. NO COMPLAINTS AT THIS TIME. CALL LIGHT WITHIN REACH.
--- NOTE | 2017-06-23 09:09 | NUR ---
PT RETURNED TO FLOOR FROM [facility]. DOING WELL, NO DISTRESS NOTED. NO COMPLAINTS AT THIS TIME. CALL LIGHT WITHIN REACH.
--- NOTE | 2017-06-23 09:20 | NUR ---
SPOKE WITH DR. AVILES, PT CHANGED TO DIABETIC DIET.
--- NOTE | 2017-06-23 11:35 | NUR ---
CALLED TO PT ROOM, R EJ IV ACCESS LEAKING. IV DISCONTINUED, CATHETER INTACT. FRANCESCAG APPLIED. WHITNEY, VASCULAR ACCESS CONTACTED FOR IV PLACEMENT.
[2017-06-23 12:30] VITALS: BP 136/96
--- NOTE | 2017-06-23 13:02 | NUR ---
IV RE-SITED TO L WRIST BY WHITNEY VASCULAR NURSE. PATENT. DRSG CLEAN, DRY AND INTACT. NO COMPLAINTS AT THIS TIME.
--- NOTE | 2017-06-23 14:00 | NUR ---
PT UP TO AMBULATE MAL[place]ADO AT THIS TIME. NO COMPLAINTS.
--- NOTE | 2017-06-23 17:29 | NUR ---
PT DOING WELL, RESTING IN ROOM, LISTENING TO MUSIC. NO COMPLAINTS AT THIS TIME. IV INTACT WITH FLUIDS RUNNING ORDERED. DRSG CLEAN, DRY AND INTACT. CALL LIGHT WITHIN REACH.
--- NOTE | 2017-06-23 18:44 | NUR ---
PT RESTING IN BED, WATCHING TV. NO COMPLAINTS AT THIS TIME. CALL LIGHT WITHIN REACH.
[2017-06-23 20:00] VITALS: BP 148/109
--- NOTE | 2017-06-23 20:38 | NUR ---
REC'D. REQUESTING IV DILAUDID. STATES I WAS SUPPOSE TO GET IT AT 1930.CALL PLACED TO [facility] BRE[facility]ER.
[2017-06-24] VITALS: BP 134/93
--- NOTE | 2017-06-24 00:22 | NUR ---
2212)orders rec'd. tylenol 650mg given as ordered.(liquid) for head and neck pain. will continue to monitor for any chges. and follow current plan of care. up in hallway to [employer].denies any further complaints at present time
--- NOTE | 2017-06-24 03:42 | NUR ---
PT RESTING QUIETLY, EYES CLOSED. RESP EASY, UNLABORED. NO DISTRESS NOTED. CONTINUE UPHOLSTERER LIMOUSINE AND HEARSE'S PLAN OF CARE.
[2017-06-24 04:00] VITALS: BP 136/87
--- NOTE | 2017-06-24 04:22 | NUR ---
REFUSED LAB TO BE DRAWN THIS AM
--- NOTE | 2017-06-24 07:48 | NUR ---
PT TOOK NORVASC WITH NO DIFFICULTY. REFUSED PROTONIX AND MIRALAX STATED THAT SHE WOULD DRINK SOME OF THE MIRALAX AFTER THIS NURSE EXPLAINED REASON FOR MEDICATION PT STILL REFUSED PROTONIX. AWAKE AND ALERT ORINTED X 3 LUNGS CLAER BILATERALLY.
[2017-06-24 08:40] VITALS: BP 147/106
[2017-06-24] MEDS ORDERED: NORVASC2.5 MG PO (10:11)
[2017-06-24] MEDS ORDERED: REGLAN5 MG PO (10:12)
[2017-06-24] MEDS ORDERED: MIRALAX17 GM PO (10:12)
--- NOTE | 2017-06-24 10:42 | NUR ---
PT GIVEN TYLENOL ELIXER PER ORDER FOR COMPLAINT OF PAIN.
--- NOTE | 2017-06-24 11:54 | NUR ---
GOVIND REASSESSEMENT NOTE: PATIENT IS DISCHARGING HOME TODAY TO [place] AND WILL BE GOING BY MEDICA[employer] BUS. AUTH# [id number] (CM SPOKE WITH ROBERT) [phone] [facility]
--- NOTE | 2017-06-24 14:34 | NUR ---
PT UP AMBULATING AROUND UNIT AWAITING DISCHARGE. PT VOICES NO NEEDS AT THIS TIME. WILL CONTINUE TO MONITOR.
--- NOTE | 2017-06-24 16:03 | NUR ---
PT LEFT VIA SCAT VAN TO [facility].
--- NOTE | 2017-06-24 16:19 | NUR ---
PT DISCHARGE HOME TO [place] [facility]IA [facility]
== END 2017-06-24 16:04 | disposition home or self-care (01) | DRG 392 ==
LOC: D.ER 23:34 → D.MS 06-20 03:54 → OBSVTIME 06-20 04:32 → D.MS 06-21 15:30
PROVIDERS: Family Medicine; ADMIT Family Medicine
DX: R10.11 Right upper quadrant pain (principal); N39.0 Urinary tract infection, site not specified; K22.2 Esophageal obstruction; R11.2 Nausea with vomiting, unspecified; E10.42 Type 1 diabetes mellitus with diabetic polyneuropathy; K30 Functional dyspepsia; Z79.4 Long term (current) use of insulin; E87.6 Hypokalemia; I10 Essential (primary) hypertension; K21.9 Gastro-esophageal reflux disease without esophagitis; K20.9 Esophagitis, unspecified; F12.90 Cannabis use, unspecified, uncomplicated

== ENCOUNTER 2017-08-03 21:40 | Emergency (ER) | payer MEDICAID ==
[2017-06-20 15:28] VITALS: BMI 19.3
[~2017-08-03 21:40] MED LIST changes: +MIRALAX17 GM PO; +NORVASC2.5 MG PO; +PHENERGAN25 M1 PO; +REGLAN5 MG PO
[2017-08-03 22:49] LABS: BASOPHILS 0.5 % (0-2); EOSINOPHILS 0.4 % (0-7); HEMATOCRIT 37.6 % (36.0-48.0); HEMOGLOBIN 12.2 g/dL (12-16); IMMATURE GRANULOCYTES 0.2 % (0-5); LYMPHOCYTES 22.2 % (15-50); MCH 25.7 pg (26.0-34.0); MCHC 32.4 g/dL (31.0-37.0); MCV 79.3 fL (80.0-100.0); MEAN PLATELET VOLUME 10.2 fL (7.4-10.4); MONOCYTES 9.9 % (2-11); NEUTROPHILS 66.8 % (40-80); RBC 4.74 10x6/uL (4.00-5.40); RDW 18.5 % (11.5-14.5); WBC 11.5 10x3/uL (4.8-10.8)
[2017-08-03 22:50] LABS: PLATELET COUNT 428 10x3/uL (130-400)
[2017-08-03 23:03] LABS: ALKALINE PHOSPHATASE 104 U/L (46-116); ALT (SGPT) 13 U/L (10-68); AMYLASE - SERUM 92 U/L (25-115); BILIRUBIN - TOTAL 0.81 mg/dL (0.2-1.3); CALC OSMOLALITY 279 mosm/kg (275-300); CALCIUM 9.1 mg/dL (8.5-10.1); CARBON DIOXIDE 22.5 mmol/L (21.0-32.0); CHLORIDE - SERUM 100 mmol/L (98-107); CREATININE - SERUM 0.9 mg/dL (0.6-1.3); GLUCOSE 139 mg/dL (74-106); LIPASE 82 U/L (73-393); PROTEIN - SERUM 8.6 g/dL (6.4-8.2); SODIUM 137 mmol/L (136-145); UREA NITROGEN 25 mg/dL (7-18); eGFR NON AFRICAN AMERICAN 80 mL/min (90-120)
[2017-08-03 23:07] LABS: POTASSIUM - SERUM 2.8 mmol/L (3.5-5.1)
[2017-08-03 23:12] LABS: COLOR DK YELLOW (YELLOW)
[2017-08-03 23:13] LABS: APPEARANCE HAZY (CLEAR); BILIRUBIN NEGATIVE (NEGATIVE); GLUCOSE NEGATIVE (NEGATIVE); KETONE LARGE mg/dL (NEGATIVE); LEUKOCYTE ESTERASE NEGATIVE (NEGATIVE); NITRITE NEGATIVE (NEGATIVE); PROTEIN NEGATIVE (NEGATIVE); SPECIFIC GRAVITY 1.015 (1.005-1.020); UROBILINOGEN NORMAL (NORMAL)
[2017-08-03 23:15] LABS: UDS - AMPHET NEGATIVE QUAL (NEGATIVE); UDS - BARB NEGATIVE QUAL (NEGATIVE); UDS - BENZO POSITIVE QUAL (NEGATIVE); UDS - COCAINE NEGATIVE QUAL (NEGATIVE); UDS - METH NEGATIVE QUAL (NEGATIVE); UDS - OPIATE NEGATIVE QUAL (NEGATIVE); UDS - PCP NEGATIVE QUAL (NEGATIVE); UDS - THC POSITIVE QUAL (NEGATIVE)
== END 2017-08-04 00:17 | disposition home or self-care (01) ==
LOC: D.ER 21:40
PROVIDERS: Emergency Medicine; Nurse Practitioner Family
DX: R11.2 Nausea with vomiting, unspecified (principal); R10.9 Unspecified abdominal pain; Z87.19 Personal history of other diseases of the digestive system; E87.6 Hypokalemia; K21.9 Gastro-esophageal reflux disease without esophagitis

== ENCOUNTER 2017-08-04 14:48 | Emergency (ER) | payer MEDICAID ==
[2017-06-20 15:28] VITALS: BMI 19.3
== END 2017-08-04 16:31 | disposition home or self-care (01) ==
LOC: D.ER 14:48
DX: R10.9 Unspecified abdominal pain (principal); R11.10 Vomiting, unspecified

== ENCOUNTER 2017-08-07 18:16 | Emergency (ER) | payer MEDICAID | END 2017-08-07 23:10 | disposition home or self-care (01) | LOC: D.ER 18:16 | DX: G43.A0 Cyclical vomiting, in migraine, not intractable (principal); E87.6 Hypokalemia; F12.10 Cannabis abuse, uncomplicated; K21.9 Gastro-esophageal reflux disease without esophagitis ==

== ENCOUNTER 2017-09-08 15:21 | Emergency (ER) | payer MEDICAID ==
[2017-06-20 15:28] VITALS: BMI 19.3
== END 2017-09-08 17:01 | disposition home or self-care (01) ==
LOC: D.ER 15:21
DX: R11.10 Vomiting, unspecified (principal); K31.84 Gastroparesis

== ENCOUNTER 2017-09-11 13:04 | Emergency (ER) | payer MEDICAID ==
[2017-06-20 15:28] VITALS: BMI 19.3
[2017-09-11 13:58] LABS: HCG URINE NEGATIVE (NEGATIVE)
[2017-09-11 14:00] LABS: APPEARANCE HAZY (CLEAR); BILIRUBIN 1+ (NEGATIVE); COLOR DK YELLOW (YELLOW); GLUCOSE NEGATIVE (NEGATIVE); KETONE SMALL mg/dL (NEGATIVE); NITRITE NEGATIVE (NEGATIVE); PROTEIN TRACE mg/dL (NEGATIVE)
[2017-09-11 14:02] LABS: BACTERIA FEW /hpf (NONE SEEN); MUCUS >1+ /lpf (NONE SEEN); RED CELLS - URINE 0-5 /hpf (0-5); WHITE CELLS - URINE 0-5 /hpf (0-5); YEAST <1+ /hpf (NONE SEEN)
[2017-09-11 14:09] LABS: UDS - AMPHET NEGATIVE QUAL (NEGATIVE); UDS - BARB NEGATIVE QUAL (NEGATIVE); UDS - BENZO NEGATIVE QUAL (NEGATIVE); UDS - COCAINE NEGATIVE QUAL (NEGATIVE); UDS - OPIATE POSITIVE QUAL (NEGATIVE); UDS - PCP NEGATIVE QUAL (NEGATIVE); UDS - THC POSITIVE QUAL (NEGATIVE)
[2017-09-11 14:23] LABS: BASOPHILS 0.3 % (0-2); EOSINOPHILS 0.9 % (0-7); HEMATOCRIT 31.5 % (36.0-48.0); HEMOGLOBIN 10.2 g/dL (12-16); IMMATURE GRANULOCYTES 0.1 % (0-5); LYMPHOCYTES 31.2 % (15-50); MCH 26.8 pg (26.0-34.0); MCHC 32.4 g/dL (31.0-37.0); MCV 82.9 fL (80.0-100.0); MEAN PLATELET VOLUME 10.3 fL (7.4-10.4); MONOCYTES 9.1 % (2-11); NEUTROPHILS 58.4 % (40-80); PLATELET COUNT 367 10x3/uL (130-400); RDW 19.4 % (11.5-14.5); WBC 9.1 10x3/uL (4.8-10.8)
[2017-09-11 15:01] LABS: ALBUMIN 3.5 g/dL (3.4-5.0); ALKALINE PHOSPHATASE 93 U/L (46-116); ALT (SGPT) 13 U/L (10-68); AMYLASE - SERUM 68 U/L (25-115); BILIRUBIN - TOTAL 0.27 mg/dL (0.2-1.3); CALC OSMOLALITY 287 mosm/kg (275-300); CALCIUM 8.7 mg/dL (8.5-10.1); CHLORIDE - SERUM 110 mmol/L (98-107); CREATININE - SERUM 0.5 mg/dL (0.6-1.3); GLUCOSE 93 mg/dL (74-106); LIPASE 60 U/L (73-393); POTASSIUM - SERUM 3.1 mmol/L (3.5-5.1); PROTEIN - SERUM 7.5 g/dL (6.4-8.2); SODIUM 145 mmol/L (136-145); UREA NITROGEN 10 mg/dL (7-18); eGFR NON AFRICAN AMERICAN > 90 mL/min (90-120)
== END 2017-09-11 16:07 | disposition home or self-care (01) ==
LOC: D.ER 13:04
PROVIDERS: Family Medicine
DX: G43.A0 Cyclical vomiting, in migraine, not intractable (principal); F12.10 Cannabis abuse, uncomplicated; K21.9 Gastro-esophageal reflux disease without esophagitis

== ENCOUNTER 2017-09-12 10:04 | Emergency (ER) | payer MEDICAID ==
[2017-06-20 15:28] VITALS: BMI 19.3
[2017-09-12 12:34] LABS: ALBUMIN 3.8 g/dL (3.4-5.0); ALKALINE PHOSPHATASE 98 U/L (46-116); ALT (SGPT) 12 U/L (10-68); AMYLASE - SERUM 60 U/L (25-115); BILIRUBIN - TOTAL 0.59 mg/dL (0.2-1.3); CALC OSMOLALITY 278 mosm/kg (275-300); CALCIUM 9.3 mg/dL (8.5-10.1); CARBON DIOXIDE 22.4 mmol/L (21.0-32.0); CHLORIDE - SERUM 107 mmol/L (98-107); CREATININE - SERUM 0.4 mg/dL (0.6-1.3); GLUCOSE 83 mg/dL (74-106); LIPASE 56 U/L (73-393); PROTEIN - SERUM 7.8 g/dL (6.4-8.2); SODIUM 141 mmol/L (136-145); UREA NITROGEN 9 mg/dL (7-18); eGFR NON AFRICAN AMERICAN > 90 mL/min (90-120)
[2017-09-12 12:43] LABS: POTASSIUM - SERUM 3.9 mmol/L (3.5-5.1)
== END 2017-09-12 14:05 | disposition home or self-care (01) ==
LOC: D.ER 10:04
PROVIDERS: Emergency Medicine
DX: K21.9 Gastro-esophageal reflux disease without esophagitis (principal); K29.00 Acute gastritis without bleeding

== ENCOUNTER 2017-10-19 16:27 | Emergency (ER) | payer MEDICAID ==
[2017-06-20 15:28] VITALS: BMI 19.3
== END 2017-10-19 19:51 | disposition home or self-care (01) ==
LOC: D.ER 16:27
DX: K31.84 Gastroparesis (principal); R11.2 Nausea with vomiting, unspecified; K21.9 Gastro-esophageal reflux disease without esophagitis

== ENCOUNTER 2018-03-27 18:31 | Emergency (ER) | payer MEDICAID ==
[2017-06-20 15:28] VITALS: BMI 19.3
[2018-03-27 21:22] LABS: BASOPHILS 0.5 % (0-2); EOSINOPHILS 1.3 % (0-7); HEMATOCRIT 34.8 % (36.0-48.0); IMMATURE GRANULOCYTES 0.2 % (0-5); LYMPHOCYTES 40.6 % (15-50); MCH 31.5 pg (26.0-34.0); MCHC 34.5 g/dL (31.0-37.0); MCV 91.3 fL (80.0-100.0); MEAN PLATELET VOLUME 10.4 fL (7.4-10.4); MONOCYTES 8.7 % (2-11); NEUTROPHILS 48.7 % (40-80); RBC 3.81 10x6/uL (4.00-5.40)
[2018-03-27 21:29] LABS: PLATELET COUNT 260 10x3/uL (130-400)
[2018-03-27 21:37] LABS: ALBUMIN 3.2 g/dL (3.4-5.0); ALKALINE PHOSPHATASE 102 U/L (46-116); ALT (SGPT) 14 U/L (10-68); AMYLASE - SERUM 74 U/L (25-115); CALC OSMOLALITY 290 mosm/kg (275-300); CALCIUM 8.6 mg/dL (8.5-10.1); CARBON DIOXIDE 27.6 mmol/L (21.0-32.0); CHLORIDE - SERUM 106 mmol/L (98-107); CREATININE - SERUM 0.8 mg/dL (0.6-1.3); GLUCOSE 234 mg/dL (74-106); LIPASE 106 U/L (73-393); PROTEIN - SERUM 6.9 g/dL (6.4-8.2); SODIUM 143 mmol/L (136-145); UREA NITROGEN 8 mg/dL (7-18); eGFR NON AFRICAN AMERICAN > 90 mL/min (90-120)
[2018-03-27 21:41] LABS: POTASSIUM - SERUM 2.8 mmol/L (3.5-5.1)
[2018-03-27 22:23] LABS: APPEARANCE HAZY (CLEAR); COLOR YELLOW (YELLOW); SPECIFIC GRAVITY 1.025 (1.005-1.020)
[2018-03-27 22:24] LABS: BILIRUBIN NEGATIVE (NEGATIVE); GLUCOSE 100 mg/dL (NEGATIVE); KETONE NEGATIVE (NEGATIVE); NITRITE NEGATIVE (NEGATIVE); PROTEIN TRACE mg/dL (NEGATIVE)
[2018-03-27 22:26] LABS: BACTERIA MODERATE /hpf (NONE SEEN); MUCUS >1+ /lpf (NONE SEEN); RED CELLS - URINE 0-5 /hpf (0-5); WHITE CELLS - URINE 25-50 /hpf (0-5)
[2018-03-27 22:29] LABS: UDS - AMPHET NEGATIVE QUAL (NEGATIVE); UDS - BARB NEGATIVE QUAL (NEGATIVE); UDS - BENZO NEGATIVE QUAL (NEGATIVE); UDS - COCAINE NEGATIVE QUAL (NEGATIVE); UDS - OPIATE NEGATIVE QUAL (NEGATIVE); UDS - PCP NEGATIVE QUAL (NEGATIVE); UDS - THC POSITIVE QUAL (NEGATIVE)
[2018-03-27 22:30] LABS: HCG URINE NEGATIVE (NEGATIVE)
== END 2018-03-28 00:46 | disposition home or self-care (01) ==
LOC: D.ER 18:31
PROVIDERS: Family Medicine; Nurse Practitioner Family
DX: R10.9 Unspecified abdominal pain (principal)

== ENCOUNTER 2020-02-09 06:42 | Emergency (ER) | payer MEDICAID ==
[~2020-02-09] VITALS: Ht 167.6 cm; Wt 67.3 kg
[2020-02-09 07:01] VITALS: Ht 167.6 cm; Wt 67.3 kg
[2020-02-09 08:02] LABS: BASOPHILS 0.1 % (0-2); EOSINOPHILS 0 % (0-7); HEMATOCRIT 37.5 % (36.0-48.0); HEMOGLOBIN 11.9 g/dL (12-16); IMMATURE GRANULOCYTES 0.3 % (0-5); LYMPHOCYTES 4.6 % (15-50); MCH 28.1 pg (26.0-34.0); MCHC 31.7 g/dL (31.0-37.0); MCV 88.7 fL (80.0-100.0); MEAN PLATELET VOLUME 9.7 fL (7.4-10.4); MONOCYTES 1.1 % (2-11); NEUTROPHILS 93.9 % (40-80); RBC 4.23 10x6/uL (4.00-5.40); RDW 15.8 % (11.5-14.5); WBC 15.5 10x3/uL (4.8-10.8)
[2020-02-09 08:04] LABS: PLATELET COUNT 362 10x3/uL (130-400)
[2020-02-09 08:16] LABS: ALBUMIN 3.8 g/dL (3.4-5.0); ALKALINE PHOSPHATASE 107 U/L (30-120); ALT (SGPT) 18 U/L (10-68); AMYLASE - SERUM 208 U/L (25-115); CARBON DIOXIDE 22.5 mmol/L (21.0-32.0); CHLORIDE - SERUM 101 mmol/L (98-107); CREATININE - SERUM 0.6 mg/dL (0.6-1.3); SODIUM 135 mmol/L (136-145); UREA NITROGEN 11 mg/dL (7-18); eGFR NON AFRICAN AMERICAN > 90 mL/min (90-120)
[2020-02-09 08:18] LABS: CALC OSMOLALITY 272 mosm/kg (275-300); GLUCOSE 165 mg/dL (74-106); LIPASE 24 U/L (73-393); TROPONIN-I < 0.017 ng/mL (0.000-0.060)
[2020-02-09 08:19] LABS: POTASSIUM - SERUM 4.2 mmol/L (3.5-5.1)
[2020-02-09] MEDS ORDERED: ZOFRAN ODT4 MG/UDTAB PO (08:35)
[2020-02-09] MEDS ORDERED: PEPCID AC20 MG PO (09:53)
[2020-02-09 11:32] VITALS: BP 141/81
== END 2020-02-09 11:00 | disposition home or self-care (01) ==
LOC: D.ER 06:42
PROVIDERS: Family Medicine
DX: R11.2 Nausea with vomiting, unspecified (principal); Z87.19 Personal history of other diseases of the digestive system; E11.9 Type 2 diabetes mellitus without complications; R10.9 Unspecified abdominal pain

== ENCOUNTER 2020-05-07 21:08 | Emergency (ER) | payer MEDICAID ==
[~2020-05-07] VITALS: Ht 167.6 cm; Wt 59.1 kg
[~2020-05-07 21:08] MED LIST changes: +PEPCID AC20 MG PO; +ZOFRAN ODT4 MG/UDTAB PO
[2020-05-07 21:10] VITALS: Ht 167.6 cm; Wt 59.1 kg
[2020-05-07 21:36] LABS: BASOPHILS 0.5 % (0-2); EOSINOPHILS 3.7 % (0-7); HEMATOCRIT 43.2 % (36.0-48.0); HEMOGLOBIN 14.2 g/dL (12-16); IMMATURE GRANULOCYTES 0.2 % (0-5); LYMPHOCYTES 24.9 % (15-50); MCH 28.1 pg (26.0-34.0); MCHC 32.9 g/dL (31.0-37.0); MCV 85.4 fL (80.0-100.0); MEAN PLATELET VOLUME 10.2 fL (7.4-10.4); MONOCYTES 8.6 % (2-11); NEUTROPHILS 62.1 % (40-80); RBC 5.06 10x6/uL (4.00-5.40); RDW 13.2 % (11.5-14.5); WBC 12.6 10x3/uL (4.8-10.8)
[2020-05-07 21:47] LABS: PLATELET COUNT 246 10x3/uL (130-400)
[2020-05-07 21:51] LABS: ANION GAP 14.5 mmol/L (8-16); CALCIUM 9.9 mg/dL (8.5-10.1); POTASSIUM - SERUM 3.5 mmol/L (3.5-5.1)
[2020-05-07 21:57] LABS: ALBUMIN 4.1 g/dL (3.4-5.0); BILIRUBIN - TOTAL 0.72 mg/dL (0.2-1.3); MAGNESIUM - SERUM 2.3 mg/dL (1.8-2.4); PROTEIN - SERUM 8.8 g/dL (6.4-8.2)
[2020-05-07 22:31] LABS: BILIRUBIN NEGATIVE (NEGATIVE); GLUCOSE 50 mg/dL (NEGATIVE); KETONE LARGE mg/dL (NEGATIVE); NITRITE NEGATIVE (NEGATIVE)
[2020-05-07 22:32] LABS: UDS - AMPHET NEGATIVE QUAL (NEGATIVE); UDS - BARB NEGATIVE QUAL (NEGATIVE); UDS - BENZO NEGATIVE QUAL (NEGATIVE); UDS - COCAINE NEGATIVE QUAL (NEGATIVE); UDS - OPIATE NEGATIVE QUAL (NEGATIVE); UDS - PCP NEGATIVE QUAL (NEGATIVE); UDS - THC POSITIVE QUAL (NEGATIVE)
[2020-05-07 22:37] LABS: HCG URINE NEGATIVE (NEGATIVE)
[2020-05-08] MEDS ORDERED: COLACE100 MG PO (00:27)
[2020-05-08 00:45] VITALS: BP 145/82
[2020-05-08] MEDS ORDERED: DULCOLAX STOOL100 MG PO (16:20)
== END 2020-05-08 00:45 | disposition home or self-care (01) ==
LOC: D.ER 21:08
PROVIDERS: Family Medicine
DX: R10.9 Unspecified abdominal pain (principal); G89.29 Other chronic pain; E11.9 Type 2 diabetes mellitus without complications; R11.10 Vomiting, unspecified; Z87.19 Personal history of other diseases of the digestive system

== ENCOUNTER 2020-05-08 12:10 | Emergency (ER) | payer MEDICAID ==
[~2020-05-08] VITALS: Ht 167.6 cm; Wt 59.1 kg
[~2020-05-08 12:10] MED LIST changes: +COLACE100 MG PO
[2020-05-08 12:20] VITALS: Ht 167.6 cm; Wt 59.1 kg
[2020-05-08 13:34] LABS: BASOPHILS 0.1 % (0-2); EOSINOPHILS 0 % (0-7); HEMATOCRIT 39.7 % (36.0-48.0); HEMOGLOBIN 13.1 g/dL (12-16); IMMATURE GRANULOCYTES 0.2 % (0-5); LYMPHOCYTES 13.1 % (15-50); MEAN PLATELET VOLUME 9.7 fL (7.4-10.4); MONOCYTES 5.5 % (2-11); NEUTROPHILS 81.1 % (40-80); RBC 4.37 10x6/uL (4.00-5.40); RDW 16.6 % (11.5-14.5); WBC 10.8 10x3/uL (4.8-10.8)
[2020-05-08 13:42] LABS: CALC OSMOLALITY 277 mosm/kg (275-300); CALCIUM 9.2 mg/dL (8.5-10.1); CARBON DIOXIDE 29.9 mmol/L (21.0-32.0); CHLORIDE - SERUM 99 mmol/L (98-107); GLUCOSE 128 mg/dL (74-106); POTASSIUM - SERUM 3.7 mmol/L (3.5-5.1); SODIUM 138 mmol/L (136-145); UREA NITROGEN 13 mg/dL (7-18); eGFR NON AFRICAN AMERICAN 69 mL/min (90-120)
[2020-05-08 13:48] LABS: MCV 90.8 fL (80.0-100.0); PLATELET COUNT 315 10x3/uL (130-400)
[2020-05-08 13:51] LABS: ALBUMIN 3.8 g/dL (3.4-5.0); ALKALINE PHOSPHATASE 104 U/L (30-120); ALT (SGPT) 26 U/L (10-68); AMYLASE - SERUM 79 U/L (25-115); BILIRUBIN - TOTAL 0.54 mg/dL (0.2-1.3); LIPASE 53 U/L (73-393); PROTEIN - SERUM 8.1 g/dL (6.4-8.2)
[2020-05-08 14:07] LABS: TROPONIN-I < 0.017 ng/mL (0.000-0.060)
[2020-05-08 15:46] LABS: HCG URINE NEGATIVE (NEGATIVE)
[2020-05-08 15:54] LABS: BILIRUBIN NEGATIVE (NEGATIVE); GLUCOSE NEGATIVE (NEGATIVE); KETONE LARGE mg/dL (NEGATIVE); NITRITE NEGATIVE (NEGATIVE); UROBILINOGEN NORMAL (NORMAL)
[2020-05-08 15:55] LABS: BACTERIA FEW /hpf (NEGATIVE); EPITHELIAL CELLS 0-5 /hpf (0-5); RED CELLS - URINE 0-5 /hpf (0-5); UDS - AMPHET NEGATIVE QUAL (NEGATIVE); UDS - BARB NEGATIVE QUAL (NEGATIVE); UDS - BENZO NEGATIVE QUAL (NEGATIVE); UDS - COCAINE NEGATIVE QUAL (NEGATIVE); UDS - OPIATE POSITIVE QUAL (NEGATIVE); UDS - PCP NEGATIVE QUAL (NEGATIVE); UDS - THC POSITIVE QUAL (NEGATIVE); WHITE CELLS - URINE 0-5 /hpf (NEGATIVE)
[2020-05-08] MEDS ORDERED: DULCOLAX STOOL100 MG PO (16:20)
[2020-05-08 17:30] VITALS: BP 132/84
== END 2020-05-08 17:30 | disposition home or self-care (01) ==
LOC: D.ER 12:10
PROVIDERS: Family Medicine
DX: K59.00 Constipation, unspecified (principal); R10.9 Unspecified abdominal pain; R11.2 Nausea with vomiting, unspecified; E11.9 Type 2 diabetes mellitus without complications

== ENCOUNTER 2020-05-09 22:08 | Emergency (ER) | payer MEDICAID ==
[~2020-05-09] VITALS: Ht 167.6 cm; Wt 44.5 kg
[~2020-05-09 22:08] MED LIST changes: +DULCOLAX STOOL100 MG PO
[2020-05-09 22:11] VITALS: Ht 167.6 cm; Wt 44.5 kg
[2020-05-10 00:07] VITALS: BP 132/71
== END 2020-05-10 00:07 | disposition home or self-care (01) ==
LOC: D.ER 22:08
DX: K31.84 Gastroparesis (principal); E11.9 Type 2 diabetes mellitus without complications; R10.9 Unspecified abdominal pain

== ENCOUNTER 2020-05-15 09:26 | Emergency (ER) | payer MEDICAID ==
[~2020-05-15] VITALS: Ht 167.6 cm; Wt 56.8 kg
[2020-05-15 09:34] VITALS: BP 152/95; Ht 167.6 cm; Wt 56.8 kg
[2020-05-15 10:20] LABS: CALC OSMOLALITY 276 mosm/kg (275-300); CALCIUM 8.6 mg/dL (8.5-10.1); CARBON DIOXIDE 22.6 mmol/L (21.0-32.0); CHLORIDE - SERUM 108 mmol/L (98-107); CREATININE - SERUM 0.6 mg/dL (0.6-1.3); GLUCOSE 110 mg/dL (74-106); POTASSIUM - SERUM 3.5 mmol/L (3.5-5.1); SODIUM 139 mmol/L (136-145); UREA NITROGEN 7 mg/dL (7-18); eGFR NON AFRICAN AMERICAN > 90 mL/min (90-120)
[2020-05-15 10:25] LABS: BASOPHILS 0.3 % (0-2); EOSINOPHILS 2.3 % (0-7); HEMATOCRIT 32.4 % (36.0-48.0); HEMOGLOBIN 10.4 g/dL (12-16); IMMATURE GRANULOCYTES 0.2 % (0-5); LYMPHOCYTES 25.4 % (15-50); MCH 29.9 pg (26.0-34.0); MCHC 32.1 g/dL (31.0-37.0); MCV 93.1 fL (80.0-100.0); MEAN PLATELET VOLUME 10.1 fL (7.4-10.4); NEUTROPHILS 63.8 % (40-80); PLATELET COUNT 256 10x3/uL (130-400); RBC 3.48 10x6/uL (4.00-5.40); RDW 16.9 % (11.5-14.5)
[2020-05-15 10:26] LABS: ALBUMIN 3.2 g/dL (3.4-5.0); ALKALINE PHOSPHATASE 100 U/L (30-120); ALT (SGPT) 15 U/L (10-68); AMYLASE - SERUM 91 U/L (25-115); LIPASE 154 U/L (73-393); PROTEIN - SERUM 6.3 g/dL (6.4-8.2)
[2020-05-15 10:28] LABS: TROPONIN-I < 0.017 ng/mL (0.000-0.060)
[2020-05-15 11:24] LABS: BILIRUBIN NEGATIVE (NEGATIVE); GLUCOSE NEGATIVE (NEGATIVE); KETONE NEGATIVE (NEGATIVE); NITRITE NEGATIVE (NEGATIVE); UROBILINOGEN NORMAL (NORMAL)
== END 2020-05-15 11:55 | disposition home or self-care (01) ==
LOC: D.ER 09:26
PROVIDERS: Family Medicine
DX: E11.43 Type 2 diabetes mellitus with diabetic autonomic (poly)neuropathy (principal); K31.84 Gastroparesis; R10.9 Unspecified abdominal pain; R11.0 Nausea

== ENCOUNTER 2021-04-17 14:54 | Emergency (ER) | payer MEDICAID ==
[~2021-04-17] VITALS: Ht 167.6 cm; Wt 59.1 kg
[~2021-04-17 14:54] MED LIST changes: +BENTYL10 MG PO
[2021-04-17 14:59] VITALS: BP 180/122; Ht 167.6 cm; Wt 59.1 kg
[2021-04-17 16:11] LABS: BASOPHILS 0.1 % (0-2); EOSINOPHILS 0 % (0-7); HEMATOCRIT 42.1 % (36.0-48.0); HEMOGLOBIN 14.1 g/dL (12-16); IMMATURE GRANULOCYTES 0.4 % (0-5); LYMPHOCYTE ABS# 0.88 10x3/uL (1.18-3.74); LYMPHOCYTES 6.5 % (15-50); MCH 31.2 pg (26.0-34.0); MCHC 33.5 g/dL (31.0-37.0); MCV 93.1 fL (80.0-100.0); MEAN PLATELET VOLUME 10.2 fL (7.4-10.4); MONOCYTES 1.6 % (2-11); NEUTROPHIL ABS# 12.32 10x3/uL (1.56-6.13); NEUTROPHILS 91.4 % (40-80); RBC 4.52 10x6/uL (4.00-5.40); WBC 13.5 10x3/uL (4.8-10.8)
[2021-04-17 16:13] LABS: PLATELET COUNT 356 10x3/uL (130-400)
[2021-04-17 16:14] LABS: CALC OSMOLALITY 287 mosm/kg (275-300); CALCIUM 9.7 mg/dL (8.5-10.1); CARBON DIOXIDE 27.7 mmol/L (21.0-32.0); CHLORIDE - SERUM 103 mmol/L (98-107); CREATININE - SERUM 0.7 mg/dL (0.6-1.3); GLUCOSE 191 mg/dL (74-106); POTASSIUM - SERUM 3.4 mmol/L (3.5-5.1); SODIUM 143 mmol/L (136-145); UREA NITROGEN 8 mg/dL (7-18); eGFR NON AFRICAN AMERICAN > 90 mL/min (90-120)
[2021-04-17 16:20] LABS: ALBUMIN 4.1 g/dL (3.4-5.0); ALKALINE PHOSPHATASE 119 U/L (30-120); ALT (SGPT) 16 U/L (10-68); AMYLASE - SERUM 57 U/L (25-115); BILIRUBIN - TOTAL 0.37 mg/dL (0.2-1.3); LIPASE 32 U/L (73-393); PROTEIN - SERUM 8.4 g/dL (6.4-8.2)
[2021-04-17 16:37] LABS: HCG SERUM NEGATIVE (NEGATIVE)
[2021-04-17] MEDS ORDERED: PEPCID40 MG PO (18:20)
[2021-04-17] MEDS ORDERED: REGLAN10 MG PO (18:20)
[2021-04-17] MEDS ORDERED: ZOFRAN ODT4 MG/UDTAB PO (18:20)
[2021-04-17 19:13] LABS: NITRITE NEGATIVE (NEGATIVE)
[2021-04-17 19:14] LABS: BACTERIA MOD HPF (NONE SEEN); BILIRUBIN NEGATIVE (NEGATIVE); KETONE LARGE mg/dL (NEGATIVE); UROBILINOGEN NORMAL mg/dL (< 2); WHITE CELLS - URINE 0-5 HPF (0-4)
[2021-04-17] MEDS ORDERED: CEPHALEXIN500 M1 PO (19:24)
== END 2021-04-17 19:28 | disposition home or self-care (01) ==
LOC: D.ER 14:54
PROVIDERS: Emergency Medicine
DX: R10.9 Unspecified abdominal pain (principal); K31.84 Gastroparesis; E87.6 Hypokalemia; I10 Essential (primary) hypertension; E11.9 Type 2 diabetes mellitus without complications; R11.2 Nausea with vomiting, unspecified

== ENCOUNTER 2021-04-19 12:25 | Inpatient (IN) | payer MEDICAID ==
[~2021-04-19] VITALS: Ht 167.6 cm; Wt 58.1 kg
[~2021-04-19 12:25] MED LIST changes: +CEPHALEXIN500 M1 PO; +PEPCID40 MG PO; +REGLAN10 MG PO
[2021-04-19 15:54] LABS: BASOPHILS 0.5 % (0-2); EOSINOPHILS 0.1 % (0-7); HEMATOCRIT 38.9 % (36.0-48.0); HEMOGLOBIN 12.8 g/dL (12-16); LYMPHOCYTES 15.4 % (15-50); MCH 30.6 pg (26.0-34.0); MCV 92.8 fL (80.0-100.0); MEAN PLATELET VOLUME 8.2 fL (7.4-10.4); MONOCYTES 6.3 % (2-11); NEUTROPHILS 77.7 % (40-80); PLATELET COUNT 354 10x3/uL (130-400); RBC 4.19 10x6/uL (4.00-5.40); RDW 16.6 % (11.5-14.5); WBC 15.8 10x3/uL (4.8-10.8)
[2021-04-19 16:08] LABS: CARBON DIOXIDE 26.2 mmol/L (21.0-32.0); CHLORIDE - SERUM 100 mmol/L (98-107); CREATININE - SERUM 0.7 mg/dL (0.6-1.3); POTASSIUM - SERUM 3.3 mmol/L (3.5-5.1); SODIUM 138 mmol/L (136-145); eGFR NON AFRICAN AMERICAN > 90 mL/min (90-120)
[2021-04-19 16:12] LABS: CALC OSMOLALITY 278 mosm/kg (275-300); GLUCOSE 143 mg/dL (74-106); UREA NITROGEN 15 mg/dL (7-18)
[2021-04-19 16:17] LABS: ALBUMIN 3.8 g/dL (3.4-5.0); ALKALINE PHOSPHATASE 110 U/L (30-120); ALT (SGPT) 12 U/L (10-68); AMYLASE - SERUM 57 U/L (25-115); BILIRUBIN - TOTAL 0.55 mg/dL (0.2-1.3); PROTEIN - SERUM 8.4 g/dL (6.4-8.2)
[2021-04-19 16:20] LABS: LIPASE 28 U/L (73-393); TROPONIN-I < 0.017 ng/mL (0.000-0.060)
[2021-04-19 16:47] LABS: BILIRUBIN NEGATIVE (NEGATIVE); KETONE LARGE mg/dL (NEGATIVE); NITRITE NEGATIVE (NEGATIVE); UROBILINOGEN NORMAL mg/dL (< 2)
[2021-04-19 16:48] LABS: BACTERIA MODERATE HPF (NONE SEEN)
[2021-04-19 16:52] LABS: UDS - AMPHET NEGATIVE QUAL (NEGATIVE); UDS - BARB NEGATIVE QUAL (NEGATIVE); UDS - BENZO NEGATIVE QUAL (NEGATIVE); UDS - COCAINE NEGATIVE QUAL (NEGATIVE); UDS - OPIATE POSITIVE QUAL (NEGATIVE); UDS - PCP NEGATIVE QUAL (NEGATIVE); UDS - THC POSITIVE QUAL (NEGATIVE)
[2021-04-19 20:30] VITALS: BP 172/104
[2021-04-19 21:04] VITALS: BP 172/84
[2021-04-19 21:37] VITALS: BP 155/92
[2021-04-19] MEDS ORDERED: CARAFATE1 G PO (23:56)
[2021-04-19] MEDS ORDERED: REGLAN10 MG PO (23:56)
[2021-04-19] MEDS ORDERED: PEPCID40 MG PO (23:56)
[2021-04-19] MEDS ORDERED: ZOFRAN4 MG PO (23:57)
[2021-04-20 03:52] VITALS: BP 166/90; BMI 20.7
[2021-04-20 04:43] LABS: BASOPHILS 0.7 % (0-2); EOSINOPHILS 0.9 % (0-7); LYMPHOCYTES 19.7 % (15-50); MCH 30.4 pg (26.0-34.0); MCHC 32.7 g/dL (31.0-37.0); MCV 93.1 fL (80.0-100.0); MEAN PLATELET VOLUME 7.9 fL (7.4-10.4); MONOCYTES 10.1 % (2-11); NEUTROPHILS 68.6 % (40-80); RDW 16.2 % (11.5-14.5); WBC 14.7 10x3/uL (4.8-10.8)
[2021-04-20 05:11] LABS: HEMATOCRIT 30.9 % (36.0-48.0); HEMOGLOBIN 10.1 g/dL (12-16); PLATELET COUNT 257 10x3/uL (130-400); RBC 3.32 10x6/uL (4.00-5.40)
[2021-04-20 05:12] LABS: ALKALINE PHOSPHATASE 88 U/L (30-120); ALT (SGPT) 14 U/L (10-68); BILIRUBIN - TOTAL 0.51 mg/dL (0.2-1.3); CALCIUM 7.5 mg/dL (8.5-10.1); CHLORIDE - SERUM 106 mmol/L (98-107); MAGNESIUM - SERUM 2.2 mg/dL (1.8-2.4); PHOSPHOROUS 2.1 mg/dL (2.5-4.9); POTASSIUM - SERUM 3.1 mmol/L (3.5-5.1); PROTEIN - SERUM 6.4 g/dL (6.4-8.2); SODIUM 138 mmol/L (136-145)
[2021-04-20 05:26] VITALS: BP 151/93
[2021-04-20 05:34] LABS: CALC OSMOLALITY 273 mosm/kg (275-300); CREATININE - SERUM 0.5 mg/dL (0.6-1.3); GLUCOSE 93 mg/dL (74-106); UREA NITROGEN 6 mg/dL (7-18); eGFR NON AFRICAN AMERICAN > 90 mL/min (90-120)
--- NOTE | 2021-04-20 07:00 | NUR ---
RECEIVED REPORT. ASSUMED CARE OF PATIENT. PATIENT RESTING IN BED WITH EYES OPEN. RESP EVEN AND UNLABORED. BSX4. WHITE BOARD UPDATED, BEDSIDE SHIFT REPORT COMPLETE. NO DISTRESS.
--- NOTE | 2021-04-20 07:10 | NUR ---
WARM PACK PROVIDED TO ATTEMPT AND HELP WITH ABD PAIN PATIENT IS HOLDING HER ABD AND STATES THE WARMTH FROM HER HANDS MAKE HER FEEL A LITTLE BETTER. NO DISTRESS.
--- NOTE | 2021-04-20 08:40 | NUR ---
MEDICATED FOR PAIN AT THIS TIME. NO DISTRESS.
[2021-04-20 09:00] VITALS: BP 176/109
--- NOTE | 2021-04-20 10:18 | NUR ---
ZOFRAN DRIP AND MORPHINE CAMP HEAD COUNSELOR DISCONTINUED AT THIS TIME. MEDICATED FOR PAIN AND NAUSEA AT THIS TIME. CALL LIGHT WITHIN REACH. NO DISTRESS.
--- NOTE | 2021-04-20 11:52 | NUR ---
FSBS 93. NO INSULIN PER SLIDING SCALE.
--- NOTE | 2021-04-20 12:41 | NUR ---
lab running culture on urine sumbitted on 04/19.
[2021-04-20 13:38] VITALS: Ht 167.6 cm; Wt 58.1 kg
--- NOTE | 2021-04-20 14:15 | NUR ---
MEDICATED FOR PAIN AT THIS TIME. NO DISTRESS
--- NOTE | 2021-04-20 16:35 | NUR ---
FSBS 179. PATIENT REFUSED INSULIN ADMINISTRATION PER SLIDING SCALE.
--- NOTE | 2021-04-20 17:26 | NUR ---
DRESSING TO RIGHT IJ CHANGED AT THIS TIME THE EDGES WERE PEELING UP. BIOPATCH VISIBLE IN CLEAR WINDOW. PATIENT TOLERATED STERILE DRESSING CHANGE WELL. NO DISTRESS.
--- NOTE | 2021-04-20 18:09 | OP ---
PATIENT NAME: SHIRA OLIVAREZ MEDICAL RECORD: [id number] :90 LOCATION:D.M2 D.2129 ADMISSION DATE:04/19/21 SURGEON: AGUILA OLIVO MD DATE OF OPERATION: 04/19/2021 PREOPERATIVE DIAGNOSES: 1. Intractable nausea and vomiting. 2. Lack of peripheral IV access. 3. Gastroparesis. POSTOPERATIVE DIAGNOSES: 1. Intractable nausea and vomiting. 2. Lack of peripheral IV access. 3. Gastroparesis. PROCEDURE: Insertion of right internal jugular triple lumen central venous catheter, 16 cm. SURGEON: Aguila Olivo M.D. PUTTER IN: None. BLOOD LOSS: Minimal. ANESTHESIA: Local. The risks, possible complications, and alternatives to the procedure were explained to the patient. She elects to proceed. The discussion specifically included, but was not limited to, bleeding requiring emergency reoperation, great vessel injury, infection. DESCRIPTION OF PROCEDURE: The entire procedure was performed with the presence of a female nurse. The patient was positioned in the Trendelenburg position. The right neck was sterilely prepped and draped. Local anesthetic was used to infiltrate the skin and subcutaneous tissues of the right neck. Right internal jugular vein was percutaneously accessed in an antegrade fashion easily. A guidewire passed easily. A small skin gigi was accomplished. A subcutaneous dilator was used to dilate a subcutaneous tract. A 16 cm triple lumen central venous catheter was inserted to the hub. It was sutured in place times 1. The patient would not allow me to place any more sutures. Sterile dressing was applied. A portable chest x-ray is pending. TRANSINT:[id number] Voice Confirmation ID: [id number] DOCUMENT ID: [id number] OPERATIVE REPORT [id number] SHIRA OLIVAREZ AGUILA OLIVO MD at 1809 CC: [id number] DICTATION DATE: 04/19/21 1531 JACK PRIZER: 04/19/21 2327 ADM IN [place] [id number] [place] [id number]
[2021-04-20 20:25] VITALS: BP 157/100
[2021-04-21 00:45] VITALS: BP 145/101
[2021-04-21 04:50] VITALS: BP 166/99
--- NOTE | 2021-04-21 05:43 | NUR ---
AM LABS DRAWN FROM CENTRAL LINE. TOLERATED WELL. RESTING QUIETLY IN BED.
[2021-04-21 06:02] LABS: BASOPHILS 0.7 % (0-2); EOSINOPHILS 2.7 % (0-7); HEMATOCRIT 31.7 % (36.0-48.0); HEMOGLOBIN 10.4 g/dL (12-16); LYMPHOCYTES 20.7 % (15-50); MCH 30.8 pg (26.0-34.0); MCV 93.2 fL (80.0-100.0); MEAN PLATELET VOLUME 8.2 fL (7.4-10.4); MONOCYTES 8.7 % (2-11); NEUTROPHILS 67.2 % (40-80); PLATELET COUNT 235 10x3/uL (130-400)
[2021-04-21 06:03] LABS: WBC 8.6 10x3/uL (4.8-10.8)
[2021-04-21 06:14] LABS: CALCIUM 8.2 mg/dL (8.5-10.1); CARBON DIOXIDE 28.3 mmol/L (21.0-32.0); CHLORIDE - SERUM 105 mmol/L (98-107); GLUCOSE 88 mg/dL (74-106); POTASSIUM - SERUM 3.1 mmol/L (3.5-5.1); SODIUM 140 mmol/L (136-145)
[2021-04-21 06:17] LABS: CALC OSMOLALITY 274 mosm/kg (275-300); CREATININE - SERUM 0.7 mg/dL (0.6-1.3); PHOSPHOROUS 3.2 mg/dL (2.5-4.9); UREA NITROGEN 3 mg/dL (7-18); eGFR NON AFRICAN AMERICAN > 90 mL/min (90-120)
--- NOTE | 2021-04-21 08:00 | NUR ---
PT RECEIVED AWAKE AND ALERT IN BED. ASKING FOR PAIN MEDS. DOSED WITH MS AND ZOFRAN. ON LIQUID DIET BUT THINKS SHE IS READY FOR MORE DIET.
[2021-04-21 09:00] VITALS: BP 157/96
[2021-04-21 12:00] VITALS: BP 146/97
[2021-04-21 16:00] VITALS: BP 138/85
[2021-04-21 20:00] VITALS: BP 147/96
[2021-04-22] VITALS: BP 127/76
--- NOTE | 2021-04-22 02:03 | NUR ---
PT REGULATORY AFFAIRS INTERN LIGHT FREQUENTLY REQUESTING PAIN MEDS. PLEASANT. CONTINUES TO TOLERATE LIQUIDS OK. ENCOURAGED TO TRY TO REST.
[2021-04-22 04:00] VITALS: BP 140/98
[2021-04-22 06:26] LABS: BASOPHILS 1.1 % (0-2); EOSINOPHILS 3.7 % (0-7); HEMATOCRIT 28.9 % (36.0-48.0); HEMOGLOBIN 9.7 g/dL (12-16); LYMPHOCYTES 27.5 % (15-50); MCH 31.1 pg (26.0-34.0); MCHC 33.4 g/dL (31.0-37.0); MEAN PLATELET VOLUME 8.7 fL (7.4-10.4); MONOCYTES 9.2 % (2-11); NEUTROPHILS 58.5 % (40-80); PLATELET COUNT 181 10x3/uL (130-400); RBC 3.11 10x6/uL (4.00-5.40); RDW 15.9 % (11.5-14.5); WBC 8.9 10x3/uL (4.8-10.8)
[2021-04-22 06:37] LABS: CALCIUM 8.4 mg/dL (8.5-10.1); CARBON DIOXIDE 27.2 mmol/L (21.0-32.0); CHLORIDE - SERUM 105 mmol/L (98-107); CREATININE - SERUM 0.6 mg/dL (0.6-1.3); GLUCOSE 132 mg/dL (74-106); MAGNESIUM - SERUM 1.9 mg/dL (1.8-2.4); PHOSPHOROUS 3.3 mg/dL (2.5-4.9); SODIUM 141 mmol/L (136-145); eGFR NON AFRICAN AMERICAN > 90 mL/min (90-120)
[2021-04-22 06:38] LABS: CALC OSMOLALITY 279 mosm/kg (275-300); POTASSIUM - SERUM 3.8 mmol/L (3.5-5.1); UREA NITROGEN 4 mg/dL (7-18)
--- NOTE | 2021-04-22 07:20 | NUR ---
Lying in bed, awake/alert/oriented, T/R self ad ras, cont of B/B with BRPs per self ad ras, c/o aching abd pain rated 8/10, medicated as ordered (see MAR), call light/phone/water within reach, no s/s of acute distress observed.
[2021-04-22 09:49] VITALS: BP 147/109
--- NOTE | 2021-04-22 10:27 | NUR ---
PATIENT WALKED 150 FEET INDEPENDENTLY. PATIENT DOES NOT NEED PT, PT WILL SIGN OFF.
[2021-04-22 12:00] VITALS: BP 124/70
[2021-04-22] MEDS ORDERED: REGLAN10 MG PO (12:32)
[2021-04-22] MEDS ORDERED: ZOFRAN ODT4 MG/UDTAB PO (12:33)
[2021-04-22] MEDS ORDERED: LEVAQUIN750 MG PO (12:33)
--- NOTE | 2021-04-22 16:00 | NUR ---
Provided written/verbal discharge instructions/education to which pt verbally stated understanding, discontinued central line via sterile technique and applying pressure for 15 minutes, no s/s of acute distress observed.
--- NOTE | 2021-04-22 16:10 | NUR ---
Discharged home to self care in stable condition via w/c accompanied by hospital staff and family member, no s/s of acute distress observed.
== END 2021-04-22 16:10 | disposition home or self-care (01) | DRG 690 ==
LOC: D.ER 12:25 → D.EDHOLD 16:45 → D.M2 16:45
PROVIDERS: Family Medicine; ADMIT Emergency Medicine; ATTEND Emergency Medicine
DX: N39.0 Urinary tract infection, site not specified (principal); F12.20 Cannabis dependence, uncomplicated; E10.9 Type 1 diabetes mellitus without complications; E10.43 Type 1 diabetes mellitus with diabetic autonomic (poly)neuropathy; K31.84 Gastroparesis

== ENCOUNTER 2021-04-26 17:05 | Inpatient (IN) | payer MEDICAID ==
[~2021-04-26] VITALS: Ht 167.6 cm; Wt 60.5 kg
[~2021-04-26 17:05] MED LIST changes: +CARAFATE1 G PO; +LEVAQUIN750 MG PO; +ZOFRAN4 MG PO
[2021-04-26 17:46] LABS: BASOPHILS 0.6 % (0-2); EOSINOPHILS 0.6 % (0-7); HEMATOCRIT 40.9 % (36.0-48.0); HEMOGLOBIN 13.5 g/dL (12-16); LYMPHOCYTES 20.3 % (15-50); MCH 30.5 pg (26.0-34.0); MCHC 32.9 g/dL (31.0-37.0); MCV 92.7 fL (80.0-100.0); MEAN PLATELET VOLUME 8.7 fL (7.4-10.4); MONOCYTES 11.1 % (2-11); NEUTROPHILS 67.4 % (40-80); RBC 4.41 10x6/uL (4.00-5.40); RDW 16.3 % (11.5-14.5); WBC 13.2 10x3/uL (4.8-10.8)
[2021-04-26 17:49] LABS: PLATELET COUNT 359 10x3/uL (130-400)
[2021-04-26 17:54] LABS: CALC OSMOLALITY 276 mosm/kg (275-300); CALCIUM 9.7 mg/dL (8.5-10.1); CARBON DIOXIDE 27.8 mmol/L (21.0-32.0); CHLORIDE - SERUM 99 mmol/L (98-107); GLUCOSE 162 mg/dL (74-106); POTASSIUM - SERUM 3.4 mmol/L (3.5-5.1); SODIUM 137 mmol/L (136-145); UREA NITROGEN 11 mg/dL (7-18); eGFR NON AFRICAN AMERICAN 69 mL/min (90-120)
--- NOTE | 2021-04-26 17:57 | NUR ---
PATIENT REQUESTED TO GET UP TO THE RESTROOM TO COLLECT URINE SPECIMEN. PATIENT GIVEN CUP AND SHOWN WHERE THE RESTROOM WAS. PATIENT THEN YELLED FOR HELP AND PATIENT WAS FOUND SITTING ON THE FLOOR BESIDE HER BED IN THE ROOM. PATIENT ASSISTED UP AND STATES SHE INJURED HER ANKLE. ANKLE EVALUATED AND NO DEFORMITY OR SWELLING OR ABRASIONS NOTED. ANKLE APPEARS JUST LIKE THE OTHER. PATIENT ABLE TO MOVE AND BEAR WEIGHT ON IT. PROVIDER MADE AWARE. PATIENT NOW HAS FAMILY THAT HAS COME IN THE ROOM AND ASKED FOR AN ICE PACK FOR ANKLE. PROVIDER STATED HE DID NOT WANT ONE ON THERE AND FAMILY MEMBER MADE AWARE AND STARTED GETTING BALIGERANT WITH NURSE, STATING SHE NEEDED ICE AND PATIENT NEEDED FRESH BLANKETS BECAUSE THERE WAS POOP ON THE BLANKETS THAT THE PATIENT HAD. EXPLAINED THAT BLANKETS GIVEN WERE FRESH AND CLEAN WHEN GIVEN TO PATIENT BUT THAT NEW ONES WOULD BE PROVIDED. . BLANKETS PROVIDED TO PATIENT. FAMILY MEMBER STILL BALIGERANT WITH NURSE AND STATING THAT "YOU GONNA TELL ME I'M HIGH". FAMILY MEMBER DID SMELL HEAVILY OF SOME SUBSTANCE.
[2021-04-26 18:02] LABS: ALBUMIN 3.9 g/dL (3.4-5.0); ALKALINE PHOSPHATASE 125 U/L (30-120); ALT (SGPT) 13 U/L (10-68); AMYLASE - SERUM 151 U/L (25-115); BILIRUBIN - TOTAL 0.48 mg/dL (0.2-1.3); PROTEIN - SERUM 8.6 g/dL (6.4-8.2)
[2021-04-26 18:09] LABS: BILIRUBIN NEGATIVE (NEGATIVE); HCG URINE NEGATIVE (NEGATIVE); KETONE MODERATE mg/dL (NEGATIVE); NITRITE NEGATIVE (NEGATIVE); UROBILINOGEN NORMAL mg/dL (< 2)
[2021-04-26 18:12] LABS: WHITE CELLS - URINE 0-5 HPF (0-4)
[2021-04-26 18:13] LABS: BACTERIA FEW HPF (NONE SEEN)
[2021-04-26 18:18] LABS: LIPASE 34 U/L (73-393); TROPONIN-I < 0.017 ng/mL (0.000-0.060)
[2021-04-26 18:29] LABS: UDS - AMPHET NEGATIVE QUAL (NEGATIVE); UDS - BARB NEGATIVE QUAL (NEGATIVE); UDS - BENZO NEGATIVE QUAL (NEGATIVE); UDS - COCAINE NEGATIVE QUAL (NEGATIVE); UDS - OPIATE NEGATIVE QUAL (NEGATIVE); UDS - PCP NEGATIVE QUAL (NEGATIVE); UDS - THC POSITIVE QUAL (NEGATIVE)
--- NOTE | 2021-04-26 18:37 | NUR ---
ATTEMPTED TO TRY AN IV TWICE, ONCE WITH ULTRASOUND WITH NO SUCCESS. WHEN STUCK WITH ULTRASOUND PATIENT STATED IT WAS TOO PAINFUL AND ASKED FOR NURSE TO STOP AND NURSE IMMEDIATELY STOPPED AND PULLED OUT. BLEEDING CONTROLLED. SECOND NURSE ASKED TO LOOK FOR ACCESS AT THIS TIME.
--- NOTE | 2021-04-26 18:52 | NUR ---
SECOND NURSE TRIED WITH ULTRASOUND IN DIFFERENT AREA THAN NURSE BEFORE. PATIENT YELLED ONCE SHE STUCK AND STATES SHE WENT IN SAME SPOT AND WOULD NOT LET HER CONTINUE. PATIENT REFUSES FURTHER AT THIS TIME.
--- NOTE | 2021-04-26 19:03 | NUR ---
REPORT GIVEN TO ROBERT FUENTES AT THIS TIME.
--- NOTE | 2021-04-26 20:59 | NUR ---
PT CO ITCHING AND REDNESS TO ARMS BILAT. ADALID YEN INFORMED SEE EMAR.
[2021-04-26 22:10] VITALS: BP 148/104
--- NOTE | 2021-04-26 22:16 | NUR ---
RECEIVED TO ROOM. ALERT ORIENTED. NO COMPLAINTS AT PRESENT. RESP EVEN AND UNALBORED. NO DISTRESS NOTED. IV TO RAC INTACT WITHOUT REDNESS OR EDEMA NOTED. ORIENTED TO ROOM. CL IN RREACH
[2021-04-26 23:20] VITALS: BMI 21.5
[2021-04-27 04:00] VITALS: BP 138/98
[2021-04-27 05:38] LABS: BASOPHILS 0.9 % (0-2); EOSINOPHILS 0.9 % (0-7); HEMATOCRIT 35.9 % (36.0-48.0); HEMOGLOBIN 11.8 g/dL (12-16); LYMPHOCYTES 23.3 % (15-50); MCH 30.9 pg (26.0-34.0); MCHC 32.9 g/dL (31.0-37.0); MCV 93.9 fL (80.0-100.0); MEAN PLATELET VOLUME 8.8 fL (7.4-10.4); MONOCYTES 9.6 % (2-11); NEUTROPHILS 65.3 % (40-80); PLATELET COUNT 307 10x3/uL (130-400); RBC 3.82 10x6/uL (4.00-5.40); RDW 16.3 % (11.5-14.5); WBC 13.1 10x3/uL (4.8-10.8)
[2021-04-27 05:45] LABS: APTT 26.8 SECONDS (22.8-39.4); INR 1.11 (0.85-1.17); PROTIME 13.2 SECONDS (11.6-15.0)
[2021-04-27 06:09] LABS: ALBUMIN 3.4 g/dL (3.4-5.0); ALKALINE PHOSPHATASE 111 U/L (30-120); BILIRUBIN - TOTAL 0.41 mg/dL (0.2-1.3); CALCIUM 8.6 mg/dL (8.5-10.1); CARBON DIOXIDE 25.5 mmol/L (21.0-32.0); CHLORIDE - SERUM 102 mmol/L (98-107); MAGNESIUM - SERUM 2.3 mg/dL (1.8-2.4); POTASSIUM - SERUM 3.7 mmol/L (3.5-5.1); PROTEIN - SERUM 7.6 g/dL (6.4-8.2); SODIUM 139 mmol/L (136-145); UREA NITROGEN 10 mg/dL (7-18)
[2021-04-27 06:12] LABS: ALT (SGPT) 8 U/L (10-68); CALC OSMOLALITY 276 mosm/kg (275-300); CREATININE - SERUM 0.7 mg/dL (0.6-1.3); GLUCOSE 100 mg/dL (74-106); eGFR NON AFRICAN AMERICAN > 90 mL/min (90-120)
[2021-04-27 10:07] VITALS: BP 131/88
[2021-04-27 12:50] VITALS: BP 150/93
[2021-04-27 14:08] VITALS: Ht 167.6 cm; Wt 60.5 kg
[2021-04-27 18:13] VITALS: BP 134/88
--- NOTE | 2021-04-27 22:45 | NUR ---
REQUESTING PAIN MEDICATION FOR THROAT AND ABDOMINAL PAIN. PT RECEIVED PRNs 1 1/2 HOURS PRIOR. INFORMED HER PAIN MEDICATION IS Q6, NAUSEA MEDICATION IS Q4. PT REQUESTING FOR MORE. INFORMED HER SHE COULD NOT HAVE MORE UNTIL WITHIN ORDERED TIME.
--- NOTE | 2021-04-27 23:00 | NUR ---
PT ASKING AGAIN FOR MORE PRN MEDICATION. REFUSING PRN PEPCID, REQUESTING ANOTHER PAIN MEDICATION. INFORMED PT SHE'D PROBABLY FEEL MORE RELIEF WHEN SHE GETS SCHEDULED REGLAN AROUND 130.
--- NOTE | 2021-04-27 23:15 | NUR ---
CONTINUED COMPLAINTS OF PAIN. REQUESTING I NOTIFY DR. DR GEOVANI SMITH. STATED NO MORE PAIN MEDICATION SHOULD BE GIVEN. ENTERED ORDERS FOR CXR, TO ASSESS FOR PERFORATION. NO OTHER NEW ORDERS. CPOC.
--- NOTE | 2021-04-28 02:52 | NUR ---
I have reviewed this patient and I concur with the Shift Assessment completed by the Licensed Practical Nurse today this shift.
[2021-04-28 04:03] VITALS: BP 176/82
[2021-04-28 05:48] LABS: BASOPHILS 0.7 % (0-2); EOSINOPHILS 0.2 % (0-7); HEMATOCRIT 39.1 % (36.0-48.0); HEMOGLOBIN 12.8 g/dL (12-16); LYMPHOCYTES 9.7 % (15-50); MCH 30.3 pg (26.0-34.0); MCHC 32.6 g/dL (31.0-37.0); MCV 92.9 fL (80.0-100.0); MEAN PLATELET VOLUME 8.5 fL (7.4-10.4); MONOCYTES 3.6 % (2-11); NEUTROPHILS 85.8 % (40-80); PLATELET COUNT 334 10x3/uL (130-400); RBC 4.21 10x6/uL (4.00-5.40); RDW 15.6 % (11.5-14.5)
[2021-04-28 06:25] LABS: ALBUMIN 3.7 g/dL (3.4-5.0); ALKALINE PHOSPHATASE 119 U/L (30-120); BILIRUBIN - TOTAL 0.36 mg/dL (0.2-1.3); CALCIUM 8.9 mg/dL (8.5-10.1); CARBON DIOXIDE 24.6 mmol/L (21.0-32.0); CHLORIDE - SERUM 101 mmol/L (98-107); CREATININE - SERUM 0.6 mg/dL (0.6-1.3); MAGNESIUM - SERUM 2.2 mg/dL (1.8-2.4); POTASSIUM - SERUM 3.6 mmol/L (3.5-5.1); PROTEIN - SERUM 8.2 g/dL (6.4-8.2); SODIUM 138 mmol/L (136-145); eGFR NON AFRICAN AMERICAN > 90 mL/min (90-120)
[2021-04-28 06:26] LABS: GLUCOSE 151 mg/dL (74-106); UREA NITROGEN 7 mg/dL (7-18)
[2021-04-28 06:27] LABS: ALT (SGPT) 17 U/L (10-68); CALC OSMOLALITY 276 mosm/kg (275-300)
[2021-04-28 06:31] LABS: WBC 17.9 10x3/uL (4.8-10.8)
[2021-04-28 08:56] VITALS: BP 211/109
--- NOTE | 2021-04-28 11:25 | NUR ---
PT COMPLAINS OF ITCHING AND REDNESS WITH MORNING MEDS, REQUESTING BENADRYL, STATES PROVIDER CAME IN AND SAID SHE COULD HAVE SOME AND TO TELL THE NURSE TO CALL FOR ORDERS. ATTEMPTED TO CALL WITH NO ANSWER AT EXT [phone]
[2021-04-28 12:38] VITALS: BP 159/113
--- NOTE | 2021-04-28 16:16 | NUR ---
CALLED TO PT ROOM TO VISIT WITH CHARGE NURSE. PT STATES ADAMENTLY THAT THE NURSE DID NOT GIVE HER THE DEMEROL AND ZOFRAN AT 1600 BECAUSE SHE WATCHED IT LEAK OUT AND DID NOT FEEL ANY RELIEF. NURSE CAME TO ME WITH PT COMPLAINT AND TOLD ME THAT SHE DID PUSH THE MEDICATIONS ALONG WITH A 10CC SYRINGE OF NS WITHOUT ANY ISSUES. I WENT TO ROOM AND FLUSHED SALINE LOCK IN LEFT AC WITH 10CC OF NS WITHOUT ISSUES OR LEAKING NOTED. PT INSISTANT THAT SHE RECIEVE PAIN MEDICATION SINCE SHE DIDNT GET IT. CALL PLACED TO DR CHUN AND INFORMATION PASSED TO HER. ORDER FOR 1X TORADOL IV TO BE GIVEN.
[2021-04-28 17:24] VITALS: BP 156/100
[2021-04-28 20:00] VITALS: BP 132/86
[2021-04-29] VITALS: BP 141/89
--- NOTE | 2021-04-29 03:24 | NUR ---
I have reviewed this patient and I concur with the Shift Assessment completed by the Licensed Practical Nurse today this shift.
[2021-04-29 04:00] VITALS: BP 151/60
[2021-04-29 06:49] LABS: BASOPHILS 0.9 % (0-2); HEMATOCRIT 34.9 % (36.0-48.0); HEMOGLOBIN 11.3 g/dL (12-16); LYMPHOCYTES 28.6 % (15-50); MCH 30.4 pg (26.0-34.0); MCHC 32.5 g/dL (31.0-37.0); MCV 93.5 fL (80.0-100.0); MEAN PLATELET VOLUME 8.2 fL (7.4-10.4); MONOCYTES 11.2 % (2-11); NEUTROPHILS 56.3 % (40-80); PLATELET COUNT 311 10x3/uL (130-400); RBC 3.73 10x6/uL (4.00-5.40); RDW 15.7 % (11.5-14.5)
[2021-04-29 06:59] LABS: WBC 8.2 10x3/uL (4.8-10.8)
[2021-04-29 07:10] LABS: ALKALINE PHOSPHATASE 100 U/L (30-120); BILIRUBIN - TOTAL 0.34 mg/dL (0.2-1.3); CALC OSMOLALITY 274 mosm/kg (275-300); CALCIUM 8.7 mg/dL (8.5-10.1); CARBON DIOXIDE 25.9 mmol/L (21.0-32.0); CHLORIDE - SERUM 103 mmol/L (98-107); CREATININE - SERUM 0.6 mg/dL (0.6-1.3); GLUCOSE 118 mg/dL (74-106); MAGNESIUM - SERUM 2.3 mg/dL (1.8-2.4); POTASSIUM - SERUM 3.1 mmol/L (3.5-5.1); SODIUM 138 mmol/L (136-145); UREA NITROGEN 8 mg/dL (7-18); eGFR NON AFRICAN AMERICAN > 90 mL/min (90-120)
[2021-04-29 07:11] LABS: ALT (SGPT) 11 U/L (10-68)
--- NOTE | 2021-04-29 07:46 | NUR ---
RECIEVED BEDSIDE REPORT. IN BED RESTING. AROUSES TO VOICE, DENIES NEEDS AT THIS TIME. BED LOW POSITION, CALL LIGHT IN REACH. WILL CONTINUE TO MONTIOR.
[2021-04-29 09:24] VITALS: BP 147/98
[2021-04-29 11:52] VITALS: BP 136/100
[2021-04-29] MEDS ORDERED: NORVASC2.5 MG PO (13:02)
[2021-04-29] MEDS ORDERED: REGLAN10 MG PO (13:03)
[2021-04-29] MEDS ORDERED: FLORAJEN DIGES1 EACH PO (13:03)
[2021-04-29] MEDS ORDERED: LEVOFLOXACIN500 MG PO (13:04)
[2021-04-29] MEDS ORDERED: ZOFRAN ODT4 MG/UDTAB PO (13:04)
[2021-04-29 16:18] VITALS: BP 139/96
--- NOTE | 2021-04-29 17:12 | NUR ---
DISCHARGE PAPERS COMPLETE. NO FURTHER QUESTIONS. GATHERING BELONGINGS. WAITING ON RIDE TO ARRIVE.
[2021-04-29 19:45] VITALS: BP 124/79
--- NOTE | 2021-04-29 19:46 | NUR ---
MOTHER IN ROOM, IV DCd, ALL BELONGINGS REMOVED BY PT. NO FURTHER NEEDS.
== END 2021-04-29 20:53 | disposition home or self-care (01) | DRG 74 ==
LOC: D.ER 17:05 → D.MS 19:30 → D.EDHOLD 19:30 → D.MS 20:53
PROVIDERS: Emergency Medicine; Family Medicine; Surgery; ADMIT Family Medicine; ATTEND Family Medicine
PROC: 0D738ZZ Dilation of Lower Esophagus, Via Natural or Artificial Opening Endoscopic (ICD-10-PCS; principal; 2021-04-27 19:35)
DX: E10.43 Type 1 diabetes mellitus with diabetic autonomic (poly)neuropathy (principal); F12.20 Cannabis dependence, uncomplicated; E87.6 Hypokalemia; E10.65 Type 1 diabetes mellitus with hyperglycemia; R11.15 Cyclical vomiting syndrome unrelated to migraine; K31.84 Gastroparesis